=== PATIENT | female | born 1960 | race African-American/Black ===

== ENCOUNTER 2016-11-03 17:44 | Inpatient (IN) ==
[2016-11-03] MEDS ORDERED: cefTRIAXone 1,000 MG in SODIUM CHLORIDE 0.9% 100 ML IV STA (18:25)
--- NOTE | 2016-11-03 18:30 | Emergency Department Note ---
Arrival - Arrival Chief Complaint: Extremity Problem Stated Complaint: Referral from Dr.Jason Foley ED Nursing Triage Note: pt had fuild drawn off lt knee yesterday by Dr flori Alicia. pt was called today and told that fuild had high wbcs. pt was told to come here for iv antibiotics Mode of Arrival: Ambulatory Limitations: No Limitations Source: Patient Time Seen by Provider: 11/03/16 18:09 - History of Present Illness HPI Narrative: The patient had a button maker appointment yesterday with Dr. Alicia in [place]. She had been referred to him sometime back for multiple joint complaints, however, she had begun having left knee pain, swelling and warmth about 3 days previously. When he saw her he aspirated her left knee. She was called today and told that the joint fluid contained a lot of white blood cells and told that her blood sample also showed a high white blood cell count. She was told to come to the hospital for IV antibiotics. The patient states that Dr. Alicia did draw a culture on the joint fluid. She says she is sure about this, that they told her they would have culture results back in 2 days. She states the swelling is better since the fluid was removed. She continues to have pain but overall it feels better. She denies any fever but says the joint feels warm. The patient is a renal transplant patient. Allergies/Adverse Reactions: Allergies Allergy/AdvReac Type Severity Reaction Status Date / Time Penicillins Allergy RASH Verified 01/01/15 15:28 Home Medications: Home Medications Medication Instructions Recorded Confirmed Type Ondansetron Odt Tab [Zofran Odt] 4 mg PO Q6H PRN #12 tablet 01/01/15 Rx HYDROcodone/ACETAMIN 5-325 [[place] 1 tablet PO Q6H #10 tablet 11/16/15 Rx 5-325] Review of System - Review of System 12 point system: reviewed and no additional remarkable complaints except as stated - Review of System Constitutional: Absent: fever Musculoskeletal: Present: leg pain Medical,Surgical,& Family Hx - Medical History Cardio: History of: Hypertension Endocrine: History of: Diabetes Mellitus (NIDDM) Renal: History of: Renal Failure (polycystic kidney disease), Renal Problems ( kidney transplant in 2006) Gastrointestinal: History of: GERD No history of: Gastrointestinal Bleed, Liver Problems - Surgical History Thoracic Surgeries: Surgical HX of;: Organ Transplant Abdominal Surgeries: Surgical HX of: Abdominal Surgery (renal transplant 2007), Cholecystectomy - Family History Family History: noncontributory - Social History Smoking Status: Never smoker Frequency of Alcohol Use: None Type of Drug Use: None Exam Physical Examination: GENERAL: Alert. No acute distress. HEENT: Normocephalic and atraumatic. There is no nasal drainage. No pharyngeal erythema or exudate. NECK: Normal inspection. Supple. No lymphadenopathy or meningismus. LUNGS: No respiratory distress. Clear to auscultation bilaterally, no wheezes, rales or rhonchi. HEART: Regular rate and rhythm. 2/6 systolic murmur. ABDOMEN: Soft, nontender and nondistended with normoactive bowel sounds. BACK: Normal inspection. SKIN: Color normal. Warm and dry. EXTREMITIES: There is diffuse tenderness and swelling of the left knee with joint effusion. Mild warmth. Mild erythema. NEUROLOGICAL/PSYCHIATRIC: Alert and oriented -3 with normal mood and affect. Cranial nerves normal. No motor or sensory deficit. Vital Signs: Vital Signs Temperature 98.3 F 11/03/16 18:11 Pulse Rate 70 11/03/16 19:45 Respiratory Rate 18 11/03/16 19:45 Blood Pressure 160/91 11/03/16 19:45 O2 Sat by Pulse Oximetry 97 11/03/16 17:51 Course - Reevaluation(s) Reevaluation #1: The patient did not want to have arthrocentesis done again. She assures me that Dr. Alicia has drawn cultures and she seems reliable. I think we can get those results from him tomorrow. Her white blood cell count is also elevated and I do think she probably has a septic joint. She will need admission, IV antibiotics, orthopedics consult and nephrology consult due to her renal transplant. I discussed the patient with Dr. Vazquez who will see her and admit. Time: 19:53 Results - Labs CBC & BMP: 11/03/16 18:23 11/03/16 18:23 Disposition Clinical Impression: Septic arthritis of knee, left Case discussed with: patient, patient's family Disposition: Still a Patient Condition: Stable Time of Disposition: 19:54
[2016-11-03] MEDS ORDERED: cefTRIAXone 1,000 MG VIAL ONE (18:33)
[2016-11-03 18:57] LABS: Basophils % 0.1 % (0.0-0.8); Hematocrit 38.2 VOL% (35.7-47.0); Hemoglobin 12.4 GM/DL (12.0-16.0); Immature Granulocytes Absolute 0.25 #; Lymphocytes # 1.8 10*3/uL (1.4-4.0); Lymphocytes % 7.5 % (21.3-54.2); Mean Corpuscular HGB Conc 32.5 GM/DL (32-36); Mean Corpuscular Hemoglobin 29 PG (27-34); Mean Corpuscular Volume 89.7 FL (87-102); Mean Platelet Volume 12.7 FL (9.6-12.0); Monocytes # 0.9 10*3/uL (0.11-0.8); Monocytes % 3.7 % (1.7-12.7); Neutrophils # 21.2 10*3/uL (1.4-7.4); Neutrophils % 87.7 % (38.7-73.9); Platelet Count 228 T/CUMM (130-400); Red Blood Count 4.26 MC/CUMM (3.8-5.5); Red Cell Distribution Width 13.4 % (9.3-17.3); White Blood Count 24.2 T/CUMM (4-12)
[2016-11-03 19:13] LABS: Calcium 10.1 MG/DL (8.5-10.1); Osmolality,Calculated 288.2 MOS/KG (273-304); Potassium 4.4 MMOL/L (3.5-5.1)
[2016-11-03 19:47] LABS: Lymphocytes 7 % (20-55); Platelet Estimate Normal; Segmented Neutrophils 90 % (50-85); Total Cells Counted 100
[2016-11-03] MEDS ORDERED: MORPHINE 2 MG/1 ML SYRINGE IV PRN (20:13)
[2016-11-03] MEDS ORDERED: GLUCAGON 1 MG VIAL IM PRN (20:13)
[2016-11-03] MEDS ORDERED: ONDANSETRON 4 MG/2 ML VIAL IV PRN (20:13)
[2016-11-03] MEDS ORDERED: DEXTROSE 50% 25 GM/50 ML VIAL IV PRN (20:13)
[2016-11-03] MEDS ORDERED: ACETAMINOPHEN 325 MG TABLET PO PRN (20:13)
--- NOTE | 2016-11-03 20:19 | Hospitalist History & Physical ---
Assessment and Plan - Time spent with patient Time spent with patient: Greater than 30 minutes (1) Septic arthritis of knee, left Status: Acute Assessment and plan: She has been cultured and empiric IV antibiotics have been initiated. We will need to consult orthopedics for their opinion. We will also request results of aspirin along with Gram stain and cultures from her oil well service unit operator, Dr. Ortega Alicia. Current Visit: Yes (2) Hypertension Status: Chronic Assessment and plan: Blood pressures well controlled at this time. We will continue her current medical regimen. Current Visit: Yes (3) Status post kidney transplant Status: Chronic Assessment and plan: We will consult nephrology to assist. Will continue her current medical regimen. Current Visit: Yes (4) Diabetes mellitus Status: Chronic Assessment and plan: We will continue her routine home oral agent along with Accu-Cheks and sliding scale insulin. Current Visit: Yes Qualifiers: Diabetes mellitus type: type 2 History of Present Illness Chief complaint: Left knee pain and swelling History of present illness: Ms. Duque is a 56 year old -[place] female who has a history of hypertension, status post renal transplant who has noted several year history of multiple joint pain primarily involving her toes and fingers and elbows, however these have been increasing in intensity over the past several months. Last Wednesday she began having significant pain and swelling in her left knee which progressed throughout the week to the point that on Wednesday she was unable to work and had to ambulate with the use of assistance. She had an appointment see a oil well service unit operator, Dr. Ortega Alicia, in [place] on Wednesday for initial evaluation. She saw him Wednesday and reportedly had aspiration of the joint and was called today by his office stating that she needed to go to the hospital for admission and IV antibiotics because of elevated white blood cells and her joint aspirate as well as in her blood. She presented to the emergency room and referred to the hospitalist service for admission. She sees Dr. Jay Osullivan for her renal needs locally. Home Medications Medication Instructions Recorded Confirmed Type Aspirin [Ecotrin] 81 mg PO DAILY 11/03/16 11/03/16 History Carvedilol [Coreg] 25 mg PO BID 11/03/16 11/03/16 History Furosemide Tab [Lasix Tab] 20 mg PO BID 11/03/16 11/03/16 History Isosorbide Mononitrate [Imdur] 60 mg PO DAILY 11/03/16 11/03/16 History Lisinopril 20 mg PO BID 11/03/16 11/03/16 History Losartan Potassium 100 mg PO DAILY 11/03/16 11/03/16 History Mycophenolate Mofetil Cap 750 mg PO BID 11/03/16 11/03/16 History [Cellcept] NIFEdipine [Nifedipine ER] 30 mg PO BID 11/03/16 11/03/16 History Simvastatin [Zocor] 20 mg PO MOWEFR 11/03/16 11/03/16 History Sodium Bicarb Tab 1,300 mg PO BID 11/03/16 11/03/16 History Spironolactone 25 mg PO DAILY 11/03/16 11/03/16 History Sulfamethoxazole/Trimethoprim 1 each PO MOWEFR 11/03/16 11/03/16 History [Sulfamethoxazole/Tmp Ss 400-80 Tablet] Tacrolimus [Tacrolimus Cap] 0.5 mg PO QAM 11/03/16 11/03/16 History Tacrolimus [Tacrolimus Cap] 1 mg PO BEDTIME 11/03/16 11/03/16 History Valacyclovir HCl [Valacyclovir] 0.5 mg PO ONCE 11/03/16 11/03/16 History cloNIDine TAB [Catapres Tab] 0.3 mg PO BEDTIME 11/03/16 11/03/16 History diphenhydrAMINE HCl 25 mg PO BEDTIME 11/03/16 11/03/16 History [diphenhydrAMINE Cap] glipiZIDE [Glipizide ER] 2.5 mg PO DAILY 11/03/16 11/03/16 History predniSONE TAB [PredniSONE] 5 mg PO DIRECTED 11/03/16 11/03/16 History Allergies Allergy/AdvReac Type Severity Reaction Status Date / Time Penicillins Allergy RASH Verified 01/01/15 15:28 Medical,Surgical,& Family Hx - Medical History Cardio: History of: Hypertension Endocrine: History of: Diabetes Mellitus (NIDDM) Renal: History of: Renal Failure (polycystic kidney disease), Renal Problems ( kidney transplant in 2006) Gastrointestinal: History of: GERD No history of: Gastrointestinal Bleed, Liver Problems - Surgical History Thoracic Surgeries: Surgical HX of;: Organ Transplant Abdominal Surgeries: Surgical HX of: Abdominal Surgery (renal transplant 2006), Cholecystectomy - Family History Family History: Reports;: Family Heart Disease - Social History Smoking Status: Never smoker Frequency of Alcohol Use: None Type of Drug Use: None 12 point system: reviewed and no additional remarkable complaints except as stated Exam - Constitutional Vitals: Period Temp Pulse Resp BP Sys/Lin Pulse Ox Last 24 Hr 98.3 F-98.3 F 70-72 18-18 160-202/91-95 97 General appearance: no acute distress - Head Head exam: Present: normocephalic, atraumatic - Eye Eye exam: Present: EOMI. Absent: scleral icterus Pupils: Present: SURENDRA - ENT ENT exam: Present: normal exam - Neck Neck exam: Absent: lymphadenopathy, meningismus, tenderness, thyromegaly - Respiratory Respiratory exam: Present: clear to auscultation bilaterally. Absent: rales, rhonchi, wheezes - Cardiovascular Cardiovascular exam: Present: regular rate and rhythm, systolic murmur (2/6 systolic murmur left upper sternal border) - GI/Abdominal GI/Abdominal exam: Present: normal bowel sounds, soft. Absent: distended, mass , tenderness, rebound - Extremities Exam Extremities exam: Present: other (Left knee minimal tenderness and warmth with positive effusion, full range of motion) - Back Exam Back exam: Present: normal inspection - Neurological Exam Neurological exam: Present: alert, oriented X3, CN II-XII intact. Absent: motor sensory deficit - Psychiatric Psychiatric exam: Present: normal affect, normal mood. Absent: agitated, anxious - Skin Skin exam: Present: warm, dry. Absent: erythema, rash Results - Labs CBC & BMP: 11/03/16 18:23 11/03/16 18:23 Lab Results: I have reviewed the past 24 hour labs Quality Measures - VTE Deep Vein Thrombosis/Pulmonary Embolism Present on Admission: No
[2016-11-03] MEDS ORDERED: ENOXAPARIN 40 MG/0.4 ML SYRINGE SUBCUT SCH (21:00)
[2016-11-03] MEDS: VANCOMYCIN INJ 1,250 MG in SODIUM CHLORIDE 0.9% 250 ML IV SCH (22:13)
[2016-11-03] MEDS: INSULIN LISPRO 100 UNIT/ML SUBCUT SCH (22:14)
[2016-11-03] MEDS: MYCOPHENOLATE MOFETIL 250 MG CAPSULE PO SCH (22:15)
[2016-11-03] MEDS: FUROSEMIDE 20 MG TABLET PO SCH (22:15)
[2016-11-03] MEDS: diphenhydrAMINE CAP 25 MG CAPSULE PO SCH (22:16)
[2016-11-03] MEDS: LISINOPRIL 20 MG TABLET PO SCH (22:16)
[2016-11-03] MEDS: CARVEDILOL 25 MG TABLET PO SCH (22:17)
[2016-11-03] MEDS: SODIUM BICARBONATE 650 MG TABLET PO SCH (22:17)
[2016-11-03] MEDS: TACROLIMUS 0.5 MG CAPSULE PO SCH (22:30)
[2016-11-04 04:17] LABS: Basophils % 0.1 % (0.0-0.8); Hematocrit 34.4 VOL% (35.7-47.0); Immature Granulocytes % 0.7 %; Immature Granulocytes Absolute 0.12 #; Lymphocytes # 1.7 10*3/uL (1.4-4.0); Lymphocytes % 9.1 % (21.3-54.2); Mean Corpuscular Hemoglobin 29 PG (27-34); Mean Corpuscular Volume 89.8 FL (87-102); Mean Platelet Volume 12.9 FL (9.6-12.0); Monocytes % 5.4 % (1.7-12.7); Neutrophils # 15.6 10*3/uL (1.4-7.4); Neutrophils % 84.7 % (38.7-73.9); Platelet Count 192 T/CUMM (130-400); Red Blood Count 3.83 MC/CUMM (3.8-5.5); Red Cell Distribution Width 13.4 % (9.3-17.3); White Blood Count 18.4 T/CUMM (4-12)
[2016-11-04 04:35] LABS: Calcium 9.1 MG/DL (8.5-10.1); Osmolality,Calculated 294.7 MOS/KG (273-304); Potassium 4.4 MMOL/L (3.5-5.1)
--- NOTE | 2016-11-04 07:13 | Physician Query Form ---
CLICK EDIT DOCUMENT TO SELECT QUERY ANSWER --> OK --> SIGN Little Harden RN, CCDS Certified Clinical Finance Broker W) [phone] (f) [phone] [email or web address] PROVIDERS: Make your selection(s) from the choices in EACH section by typing an "x" and enter comments in the comment section. Please use your independent medical judgment in providing your response. This request does not imply that any particular answer is desired or expected. CLINICAL INDICATORS: (Providers should not edit this section) The medical record indicates that the patient was admitted with septic arthritis of knee, renal failure, renal transplant, polycystic kidney disease, creatinine 2.00 and GFR of 33. Clarify which of the following most accurately represents the patient's renal status: ( ) Acute kidney injury (non-traumatic) ( ) Acute renal failure ( x) Acute renal failure with underlying Chronic Kidney Disease (CKD) - please provide stage below ( ) Acute renal failure with pathological renal lesion ( ) Acute renal failure with necrosis ( ) tubular ( ) medullary ( ) cortical ( ) CKD - please provide stage below ( ) End Stage Renal Disease ( ) Acute interstitial nephritis ( ) Hepatorenal syndrome ( ) Other, please specify: ( ) Clinically unable to determine Chronic Kidney Disease Stages Source: National Kidney Disease Foundation ( ) Stage I (eGFR > or = 90) ( ) Stage II (eGFR 60 - 89) ( x) Stage III (eGFR 30 - 59) ( ) Stage IV (eGFR 15 - 29) ( ) Stage V (eGFR < 15 or dialysis) COMMENTS: Use of terms such as suspected, likely, or probable (associated with a specific diagnosis that is being evaluated, monitored, or treated as if it exists) are acceptable and can be restated in the discharge summary if not ruled out. MTDD
--- NOTE | 2016-11-04 08:23 | Orthopedic Consult Note ---
History of Present Illness Chief complaint: Left knee effusion History of present illness: Ms. Duque is a 56 year old female who presents for evaluation of a 8 day history of a right atraumatic knee effusion. The patient stated her symptoms started last Wednesday. She has a history of gout and recurrent attacks. She sees Dr. Ortega Alicia in rheumatology for management. She saw him on Wednesday where her knee was aspirated and lab work was obtained. She was placed on a 5 day course of prednisone. Ms. Duque also has a history of a kidney transplant for 10 years. She states that her knee has improved. She has had some warmth around the knee but has not had any fevers or chills. The patient was admitted and placed on ceftriaxone and vancomycin. Exam bilateral lower extremities shows that she has a moderate left knee effusion which is only mildly tender. The knee is mildly warm. Range of motion actively is from 0-90 without much pain. Her knee is stable and her extensor mechanism is intact. Laboratory values from her knee aspiration and blood work from Dr. Alicia's office was reviewed. It shows that she had a mild leukocytosis of 14,000, sedimentation rate of 78, and a mildly elevated C-reactive protein. Her uric acid was approximately 8.5. Her aspiration showed a white count of 38,000 with a left shift. No crystals were seen. Her white cell count at [facility] shows a leukocytosis of 24 and 18,000. Impression: Left knee effusion Plan: I discussed with the patient that at this point it is unclear whether this is a septic arthritis, an acute gouty arthritis or both. Certainly, she needs to be treated as a septic arthritis until her culture results are final. Her worsening leukocytosis is probably related to the initiation of prednisone. I am going to check x-rays and repeat her sedimentation rate, C-reactive protein and uric acid. I have held her Lovenox and made her n.p.o. past midnight in case her cultures come back positive for arthroscopic irrigation and debridement. Home Medications Medication Instructions Recorded Confirmed Type Aspirin [Ecotrin] 81 mg PO DAILY 11/03/16 11/03/16 History Carvedilol [Coreg] 25 mg PO BID 11/03/16 11/03/16 History Furosemide Tab [Lasix Tab] 20 mg PO BID 11/03/16 11/03/16 History Isosorbide Mononitrate [Imdur] 60 mg PO DAILY 11/03/16 11/03/16 History Lisinopril 20 mg PO BID 11/03/16 11/03/16 History Losartan Potassium 100 mg PO DAILY 11/03/16 11/03/16 History Mycophenolate Mofetil Cap 750 mg PO BID 11/03/16 11/03/16 History [Cellcept] NIFEdipine [Nifedipine ER] 30 mg PO BID 11/03/16 11/03/16 History Simvastatin [Zocor] 20 mg PO MOWEFR 11/03/16 11/03/16 History Sodium Bicarb Tab 1,300 mg PO BID 11/03/16 11/03/16 History Spironolactone 25 mg PO DAILY 11/03/16 11/03/16 History Sulfamethoxazole/Trimethoprim 1 each PO MOWEFR 11/03/16 11/03/16 History [Sulfamethoxazole/Tmp Ss 400-80 Tablet] Tacrolimus [Tacrolimus Cap] 0.5 mg PO QAM 11/03/16 11/03/16 History Tacrolimus [Tacrolimus Cap] 1 mg PO BEDTIME 11/03/16 11/03/16 History cloNIDine TAB [Catapres Tab] 0.3 mg PO BEDTIME 11/03/16 11/03/16 History diphenhydrAMINE HCl 25 mg PO BEDTIME 11/03/16 11/03/16 History [diphenhydrAMINE Cap] glipiZIDE [Glipizide ER] 2.5 mg PO DAILY 11/03/16 11/03/16 History predniSONE TAB [PredniSONE] 5 mg PO DIRECTED 11/03/16 11/03/16 History Allergies Allergy/AdvReac Type Severity Reaction Status Date / Time Penicillins Allergy RASH Verified 01/01/15 15:28 12 point system: reviewed and no additional remarkable complaints except as stated Medical,Surgical,& Family Hx - Medical History Cardio: History of: Hypertension, Cardiovascular Problems (heart murmur) HEENT: History of: Eye Problem (wear glasses) Endocrine: History of: Diabetes Mellitus (NIDDM) Renal: History of: Renal Failure (polycystic kidney disease), Renal Problems ( kidney transplant in 2006) Gastrointestinal: History of: GERD No history of: Gastrointestinal Bleed, Liver Problems Musculoskeletal: History of: Musculoskeletal Problems (joint problems) - Surgical History Thoracic Surgeries: Surgical HX of;: Organ Transplant Abdominal Surgeries: Surgical HX of: Abdominal Surgery (renal transplant 2006), Cholecystectomy - Family History Family History: Reports;: Family Heart Disease - Social History Smoking Status: Never smoker Frequency of Alcohol Use: None Type of Drug Use: None Exam - Constitutional Vitals: Period Temp Pulse Resp BP Sys/Lin Pulse Ox Last 24 Hr 97.1 F-98.4 F 64-79 18-20 159-169/69-85 95-98 Results - Labs CBC & BMP: 11/04/16 03:59 11/04/16 03:59 Assessment and Plan (1) Knee effusion, left Status: Acute Current Visit: Yes (2) Gout attack Status: Acute Current Visit: Yes Qualifiers: Gout site: knee Laterality: left
[2016-11-04 08:29] LABS: Uric Acid 9.1 MG/DL (2.6-6.0)
--- NOTE | 2016-11-04 08:36 | XRay Report ---
XR knee 2V LT Indication: Knee effusion. Comparison: None. Technique: AP and lateral images of the left knee were submitted. Findings: [id number] suprapatellar bursa joint effusion is demonstrated. Enthesophyte is noted insertion of the quadriceps tendon. Diffuse intimal calcification superficial femoral artery, popliteal artery, and infrapopliteal arterial structures is present. No fractures are demonstrated. Joint spacing of the medial lateral joint compartments appears well preserved. Impression: 1. Findings compatible with given history. Other findings are present as detailed. 11/04/2016 8:32 AM PROCEDURE INTERPRETED AT [facility] DEPARTMENT OF RADIOLOGY Final Report Signed by: Dr. Baltazar Harden
--- NOTE | 2016-11-04 09:59 | Hospitalist Progress Note ---
Hospitalist: Subjective Interval history: C/O slight ache in left knee but swelling is better per pt. No fever. Tolerating oral intake well. +BM this am. No diarrhea, melena or BRBPR. Exam - Constitutional Vitals: Period Temp Pulse Resp BP Sys/Lin Pulse Ox Last 24 Hr 97.1 F-98.4 F 64-79 18-20 159-169/69-85 95-98 Exam: GEN: A and O x 3 CV: RRR no M LUNGS: CTAB nonlabored ABD: Soft, NT, ND, +BS EXT: Warm no c/c. Slight edema and increased warmth of left knee. mild TTP. No overlying erythema Neuro: nonfocal Results - Labs CBC & BMP: 11/04/16 03:59 11/04/16 03:59 - Impressions (1) Septic arthritis of knee, left Status: Acute Assessment and plan: Cont empiric IV antibiotics (Received IV Rocephin in ER...currently on IV Vanc) . PKS managing dose. Orthopedics has evaluated and awaiting outside records. F/U Dr. Ortega Alicia Rheumatology at discharge. Current Visit: Yes (2) Hypertension, essential Status: Chronic Assessment and plan: Blood pressures well controlled at this time. We will continue her current medical regimen. Current Visit: Yes (3) Status post kidney transplant/ CKD stage 3 Status: Chronic Assessment and plan: Nephrology consulted. creatinine at baseline per patient. Will continue her current medical regimen. Current Visit: Yes (4) Diabetes mellitus Status: Chronic Assessment and plan: Hold Glipizide per ADA guidelines. Cont Accu-Cheks and sliding scale insulin. Check HgbA1c. Current Visit: Yes Qualifiers: Diabetes mellitus type: type 2 Quality Measures - VTE Deep Vein Thrombosis/Pulmonary Embolism Present on Admission: No
[2016-11-04] MEDS: SPIRONOLACTONE 25 MG TABLET PO SCH (10:01)
[2016-11-04] MEDS: MYCOPHENOLATE MOFETIL 250 MG CAPSULE PO SCH ×2 (10:02→21:28)
[2016-11-04] MEDS: SULFAMETHOX/TRIMETHOPRIM 400-80 MG TABLET PO SCH (10:02)
[2016-11-04] MEDS: ASPIRIN EC 81 MG TABLET PO SCH (10:02)
[2016-11-04] MEDS: LOSARTAN 50 MG TABLET PO SCH (10:03)
[2016-11-04] MEDS: CARVEDILOL 25 MG TABLET PO SCH ×2 (10:03→21:28)
[2016-11-04] MEDS: ISOSORBIDE MONONITRATE 30 MG TABLET PO SCH (10:04)
[2016-11-04] MEDS: FUROSEMIDE 20 MG TABLET PO SCH ×2 (10:05→21:30)
[2016-11-04] MEDS: TACROLIMUS 0.5 MG CAPSULE PO SCH ×2 (10:06→21:29)
[2016-11-04] MEDS: SODIUM BICARBONATE 650 MG TABLET PO SCH ×2 (10:07→21:29)
[2016-11-04] MEDS: PANTOPRAZOLE 40 MG TABLET PO SCH (10:07)
[2016-11-04] MEDS: SIMVASTATIN 20 MG TABLET PO SCH (10:08)
[2016-11-04] MEDS: INSULIN LISPRO 100 UNIT/ML SUBCUT SCH ×4 (10:13→21:31)
[2016-11-04] MEDS: LISINOPRIL 20 MG TABLET PO SCH ×2 (10:44→21:28)
--- NOTE | 2016-11-04 14:07 | Nephrology Consult Note ---
History of Present Illness Chief complaint: Kidney transplant in a patient admitted with a septic knee joint History of present illness: Ms. Duque is a 56 year old female who was admitted yesterday for knee pain. The patient states she had been having some knee pain for about a month and this progressively worsened particularly in the past week or so. She saw a electrotype molder recently and was felt to have fluid in her knee and had an aspiration. Cultures of this fluid are pending presently. The patient is getting empiric treatment with Rocephin and vancomycin. The patient states she has been having some associated sweats at night and has had some increased warmth as well as swelling and redness about her left knee recently. We were asked to see the patient for kidney transplant. The patient's creatinine today was 1.9 mg/dL review of her lab from about a year ago shows that she had a creatinine of around 1.7 mg/dL at that time. The patient had a kidney transplant about 10 years ago, this was a cadaveric renal transplant done at [facility]. The patient has been on tacrolimus and mycophenolate mofetil for this, she does not routinely take prednisone for her kidney. ROS: Head -positive headache yesterday ENT - denies sore throat Lymphatics - denies lymphadenopathy Hematology - denies bleeding problems Heart -she has occasional chest pain when she takes prednisone Lungs - denies shortness of breath Abdomen - denies abdominal pain Musculoskeletal -see HPI Skin - denies rash Neurology - denies stroke General - denies fever PE: General: in no acute distress Eyes: Pupils are round and reactive, conjunctivae are clear ENT: Nose is clear, O/P is benign Neck: Supple, no thyromegaly Lymphatics: No cervical, supraclavicular or axillary adenopathy Heart: Regular rate and rhythm, no edema Lungs: Clear to auscultation anteriorly, chest expansion symmetric Abdomen: Soft, normoactive bowel sounds, no hepatomegaly Musculoskeletal: Patient's left knee joint is a little bit enlarged when compared to the right knee joint, she has no surrounding erythema at this time Skin: Normal turgor, normal hydration, no rash Neuro/Psych: Alert and cooperative with good insight Home Medications Medication Instructions Recorded Confirmed Type Aspirin [Ecotrin] 81 mg PO DAILY 11/03/16 11/03/16 History Carvedilol [Coreg] 25 mg PO BID 11/03/16 11/03/16 History Furosemide Tab [Lasix Tab] 20 mg PO BID 11/03/16 11/03/16 History Isosorbide Mononitrate [Imdur] 60 mg PO DAILY 11/03/16 11/03/16 History Lisinopril 20 mg PO BID 11/03/16 11/03/16 History Losartan Potassium 100 mg PO DAILY 11/03/16 11/03/16 History Mycophenolate Mofetil Cap 750 mg PO BID 11/03/16 11/03/16 History [Cellcept] NIFEdipine [Nifedipine ER] 30 mg PO BID 11/03/16 11/03/16 History Simvastatin [Zocor] 20 mg PO MOWEFR 11/03/16 11/03/16 History Sodium Bicarb Tab 1,300 mg PO BID 11/03/16 11/03/16 History Spironolactone 25 mg PO DAILY 11/03/16 11/03/16 History Sulfamethoxazole/Trimethoprim 1 each PO MOWEFR 11/03/16 11/03/16 History [Sulfamethoxazole/Tmp Ss 400-80 Tablet] Tacrolimus [Tacrolimus Cap] 0.5 mg PO QAM 11/03/16 11/03/16 History Tacrolimus [Tacrolimus Cap] 1 mg PO BEDTIME 11/03/16 11/03/16 History cloNIDine TAB [Catapres Tab] 0.3 mg PO BEDTIME 11/03/16 11/03/16 History diphenhydrAMINE HCl 25 mg PO BEDTIME 11/03/16 11/03/16 History [diphenhydrAMINE Cap] glipiZIDE [Glipizide ER] 2.5 mg PO DAILY 11/03/16 11/03/16 History predniSONE TAB [PredniSONE] 5 mg PO DIRECTED 11/03/16 11/03/16 History Allergies Allergy/AdvReac Type Severity Reaction Status Date / Time Penicillins Allergy RASH Verified 01/01/15 15:28 Medical,Surgical,& Family Hx - Medical History Cardio: History of: Hypertension, Cardiovascular Problems (heart murmur) HEENT: History of: Eye Problem (wear glasses) Endocrine: History of: Diabetes Mellitus (NIDDM) Renal: History of: Renal Failure (polycystic kidney disease), Renal Problems ( kidney transplant in 2006) Gastrointestinal: History of: GERD No history of: Gastrointestinal Bleed, Liver Problems Musculoskeletal: History of: Musculoskeletal Problems (joint problems) - Surgical History Thoracic Surgeries: Surgical HX of;: Organ Transplant Abdominal Surgeries: Surgical HX of: Abdominal Surgery (renal transplant 2006), Cholecystectomy - Family History Family History: Reports;: Family Heart Disease - Social History Smoking Status: Never smoker Frequency of Alcohol Use: None Type of Drug Use: None Exam - Vital Signs Vital signs: Period Temp Pulse Resp BP Sys/Lin Pulse Ox Last 24 Hr 97.1 F-98.4 F 58-79 16-20 159-169/69-90 93-98 Results - Labs CBC & BMP: 11/04/16 03:59 11/04/16 03:59 Assessment and Plan (1) Status post kidney transplant Status: Chronic Assessment and plan: We will continue her present antirejection regimen Current Visit: Yes (2) Knee effusion, left Status: Acute Assessment and plan: Management per orthopedics, cultures on the joint fluid are pending Current Visit: Yes (3) Diabetes mellitus Status: Chronic Current Visit: Yes Qualifiers: Diabetes mellitus type: type 2 (4) Hypertension Status: Chronic Assessment and plan: Continue her present antihypertensives Current Visit: Yes (5) Anemia Status: Acute Assessment and plan: This is mild her hematocrit was around 34% today Current Visit: Yes (6) Hyperuricemia Status: Acute Assessment and plan: Patient CARE gas and level was 9.1 Current Visit: Yes
[2016-11-04] MEDS: predniSONE 20 MG TABLET PO SCH (15:34)
[2016-11-04] MEDS: cefTRIAXone 2,000 MG in SODIUM CHLORIDE 0.9% 100 ML IV SCH (17:50)
[2016-11-04] MEDS: diphenhydrAMINE CAP 25 MG CAPSULE PO SCH (21:28)
[2016-11-04] MEDS: VANCOMYCIN INJ 1,250 MG in SODIUM CHLORIDE 0.9% 250 ML IV SCH (21:32)
[2016-11-05 04:39] LABS: Basophils % 0.1 % (0.0-0.8); Hematocrit 35.5 VOL% (35.7-47.0); Hemoglobin 11.5 GM/DL (12.0-16.0); Immature Granulocytes % 1.1 %; Immature Granulocytes Absolute 0.14 #; Lymphocytes # 1.1 10*3/uL (1.4-4.0); Lymphocytes % 8.5 % (21.3-54.2); Mean Corpuscular HGB Conc 32.4 GM/DL (32-36); Mean Corpuscular Hemoglobin 29 PG (27-34); Mean Corpuscular Volume 88.5 FL (87-102); Mean Platelet Volume 13.8 FL (9.6-12.0); Monocytes # 0.5 10*3/uL (0.11-0.8); Monocytes % 4.1 % (1.7-12.7); Neutrophils # 10.7 10*3/uL (1.4-7.4); Neutrophils % 86.2 % (38.7-73.9); Platelet Count 133 T/CUMM (130-400); Red Blood Count 4.01 MC/CUMM (3.8-5.5); Red Cell Distribution Width 13.2 % (9.3-17.3); White Blood Count 12.5 T/CUMM (4-12)
[2016-11-05 05:26] LABS: Albumin 2.8 G/DL (3.4-5.0); Osmolality,Calculated 294.8 MOS/KG (273-304); Phosphorous 3.3 MG/DL (2.5-4.9); Potassium 5.2 MMOL/L (3.5-5.1)
--- NOTE | 2016-11-05 07:28 | Orthopedic Progress Note ---
Assessment and Plan (1) Knee effusion, left Status: Acute Current Visit: Yes (2) Gout attack Status: Acute Current Visit: Yes Qualifiers: Gout site: knee Laterality: left Orthopedics - Subjective Interval history: Mrs. Duque is feeling much better today. Exam shows full range of motion of her knee. She has a mild effusion with mild warmth. Radiographs knee were reviewed which show a knee effusion. Her preliminary culture result at 48 hours show no growth to date. Her uric acid level yesterday is also elevated to 9.1. Impression: Left knee effusion. Plan: Wait for final culture result. If the cultures are negative, I will assume that the knee effusion is secondary to an acute gout attack. Her antibiotics can be stopped, and she can then be discharged home finishing her course of prednisone. If the cultures are positive, I will recommend a knee arthroscopy for irrigation and debridement. Exam - Constitutional Vitals: Period Temp Pulse Resp BP Sys/Lin Pulse Ox Last 24 Hr 97.2 F-97.6 F 58-69 16-20 150-190/69-90 93-96 Results - Labs CBC & BMP: 11/05/16 03:49 11/05/16 03:49 Quality Measures - VTE Deep Vein Thrombosis/Pulmonary Embolism Present on Admission: No
[2016-11-05 08:07] LABS: Sedimentation Rate-Westergren 50 MM/HR (0-30)
[2016-11-05] MEDS: INSULIN LISPRO 100 UNIT/ML SUBCUT SCH ×4 (08:58→21:17)
[2016-11-05] MEDS: FUROSEMIDE 20 MG TABLET PO SCH ×2 (09:00→21:17)
[2016-11-05] MEDS: LOSARTAN 50 MG TABLET PO SCH (09:01)
[2016-11-05] MEDS: CARVEDILOL 25 MG TABLET PO SCH ×2 (09:01→21:15)
[2016-11-05] MEDS: ISOSORBIDE MONONITRATE 30 MG TABLET PO SCH (09:02)
[2016-11-05] MEDS: LISINOPRIL 20 MG TABLET PO SCH ×2 (09:10→21:16)
[2016-11-05] MEDS: MYCOPHENOLATE MOFETIL 250 MG CAPSULE PO SCH ×2 (12:05→21:15)
[2016-11-05] MEDS: TACROLIMUS 0.5 MG CAPSULE PO SCH ×2 (12:05→21:16)
[2016-11-05] MEDS ORDERED: SODIUM POLYSTYRENE SULFATE 15 GM/60 ML BOTTLE PO STA (12:43)
--- NOTE | 2016-11-05 12:45 | Hospitalist Progress Note ---
Hospitalist: Subjective Interval history: No fever. Pain in the left knee is much improved as well as swelling is decreased. No chest pain or shortness of breath. No bowel movement yet. No abdominal pain. Exam - Constitutional Vitals: Period Temp Pulse Resp BP Sys/Lin Pulse Ox Last 24 Hr 97.2 F-98.2 F 52-69 16-20 150-190/69-90 95-99 Exam: GEN: A and O x 3 CV: RRR no M LUNGS: CTAB nonlabored ABD: Soft, NT, ND, +BS EXT: Warm no c/c. Slight edema laterally and slight increased warmth of left knee. mild TTP. ROM better today. No overlying erythema Neuro: nonfocal Results - Labs CBC & BMP: 11/05/16 03:49 11/05/16 03:49 - Impressions (1) Suspected septic arthritis of knee, left in an immunocompromised patient due to kidney transplant Status: Acute Assessment and plan: Cont empiric IV antibiotics (Received IV Rocephin in ER...currently on IV Vanc) . PKS managing dose. Orthopedics input appreciated and is following. NPO for potential going to OR. Awaiting outside culture records. F/U Dr. Ortega Alicia Rheumatology at discharge. Current Visit: Yes (2) Hypertension, essential Status: Chronic Assessment and plan: We will continue her current medical regimen. Pain control. Current Visit: Yes (3) Status post kidney transplant/ CKD stage 3 Status: Chronic Assessment and plan: Nephrology consulted. creatinine at baseline per patient. Will continue her current medical regimen. Current Visit: Yes (4) hyperkalemia (acute) -Kayexalate x 1. Follow-up lab (5) diabetes mellitus fairly well controlled with a hemoglobin A1c of 7.3 Status: Chronic Assessment and plan: Hold Glipizide per ADA guidelines. Cont Accu-Cheks and sliding scale insulin. Current Visit: Yes Qualifiers: Diabetes mellitus type: type 2 DVT prophylaxis-on Lovenox but will need to change to renal dosing. Quality Measures - VTE Deep Vein Thrombosis/Pulmonary Embolism Present on Admission: No
[2016-11-05] MEDS ORDERED: ENOXAPARIN 40 MG/0.4 ML SYRINGE SUBCUT SCH (13:24)
--- NOTE | 2016-11-05 14:11 | Event Note ---
The final culture results are not back yet. I have discussed with Ms. Duque that we will go ahead and start a diet. If her cultures are negative, she can be discharged home with follow-up with Dr. Alicia and her antibiotics can be stopped. If positive, she will be placed on the schedule tomorrow for arthroscopic irrigation and debridement of her left knee.
[2016-11-05] MEDS: ASPIRIN EC 81 MG TABLET PO SCH (14:47)
[2016-11-05] MEDS: SPIRONOLACTONE 25 MG TABLET PO SCH (14:47)
[2016-11-05] MEDS: SODIUM BICARBONATE 650 MG TABLET PO SCH ×2 (14:48→21:16)
[2016-11-05] MEDS: predniSONE 20 MG TABLET PO SCH (14:49)
[2016-11-05] MEDS: PANTOPRAZOLE 40 MG TABLET PO SCH (14:49)
--- NOTE | 2016-11-05 16:16 | Nephrology Progress Note ---
Nephrology - PN: Subj Interval history: Patient complains of some continued knee pain but it is much improved. Review of systems pulmonary she denies shortness of breath Physical exam general the patient no acute distress Assessment/plan 1. Kidney transplant-patient's creatinine is 1.7 mg/dL this is improved from 1.9 2. Septic knee joint-we will continue antibiotics 3. Hypertension we will continue her present antihypertensives 4. Anemia 5. Hypokalemia-patient's potassium is 5.2 up from 4.4 she is on multiple medications which would make her hold onto potassium as well as her kidney failure we will continue to monitor this. I am going to put her on a low potassium diet. Exam (PN)-Nephrology - Vital Signs Vital signs: Period Temp Pulse Resp BP Sys/Lin Pulse Ox Last 24 Hr 97.2 F-98.2 F 52-69 16-20 150-190/69-90 95-99 - Lab 11/05/16 03:49 11/05/16 03:49 Most recent lab results Calcium 9.0 MG/DL (8.5-10.1) 11/05/16 03:49 Phosphorus 3.3 MG/DL (2.5-4.9) 11/05/16 03:49 Assessment and Plan (1) Status post kidney transplant Status: Chronic Assessment and plan: We will continue her present antirejection regimen Current Visit: Yes (2) Knee effusion, left Status: Acute Assessment and plan: Management per orthopedics, cultures on the joint fluid are pending Current Visit: Yes (3) Diabetes mellitus Status: Chronic Current Visit: Yes Qualifiers: Diabetes mellitus type: type 2 (4) Hypertension Status: Chronic Assessment and plan: Continue her present antihypertensives Current Visit: Yes (5) Anemia Status: Acute Assessment and plan: This is mild her hematocrit was around 34% today Current Visit: Yes (6) Hyperuricemia Status: Acute Assessment and plan: Patient CARE gas and level was 9.1 Current Visit: Yes
[2016-11-05] MEDS: cefTRIAXone 2,000 MG in SODIUM CHLORIDE 0.9% 100 ML IV SCH (18:46)
[2016-11-05] MEDS: diphenhydrAMINE CAP 25 MG CAPSULE PO SCH (21:15)
[2016-11-05] MEDS: VANCOMYCIN INJ 1,250 MG in SODIUM CHLORIDE 0.9% 250 ML IV SCH (22:32)
[2016-11-06 05:03] LABS: Calcium 8.9 MG/DL (8.5-10.1); Osmolality,Calculated 295.7 MOS/KG (273-304); Potassium 4.7 MMOL/L (3.5-5.1)
--- NOTE | 2016-11-06 07:40 | Orthopedic Progress Note ---
Assessment and Plan (1) Knee effusion, left Status: Acute Current Visit: Yes (2) Gout attack Status: Acute Current Visit: Yes Qualifiers: Gout site: knee Laterality: left Orthopedics - Subjective Interval history: Ms. Duque states that her knee is significantly better. Exam shows a very minimal knee effusion. She has full painless range of motion of her knee. She is just mildly tender. Culture results from [facility] show no growth at 72 hours. Impression: Left knee acute gout attack Plan: Antibiotics can be stopped. Ms. Duque can be discharged home with follow- up with Dr. Alicia for management of her gout. Exam - Constitutional Vitals: Period Temp Pulse Resp BP Sys/Lin Pulse Ox Last 24 Hr 96.9 F-98.2 F 52-68 16-20 156-191/72-90 93-99 Results - Labs CBC & BMP: 11/05/16 03:49 11/06/16 03:51 Quality Measures - VTE Deep Vein Thrombosis/Pulmonary Embolism Present on Admission: No
--- NOTE | 2016-11-06 09:26 | Nephrology Progress Note ---
Nephrology - PN: Subj Interval history: Patient complains of some continued mild knee pain but is much improved. Assessment/plan #1. Kidney transplant-patient's creatinine is 1.6 2. Hypertension is controlled 3. Left knee effusion-this patient's culture were negative from her left knee tap, it is felt that she had an acute gout attack involving her left knee Exam (PN)-Nephrology - Vital Signs Vital signs: Period Temp Pulse Resp BP Sys/Lin Pulse Ox Last 24 Hr 96.9 F-97.7 F 54-68 16-20 156-191/72-90 93-99 - Lab 11/05/16 03:49 11/06/16 03:51 Most recent lab results Calcium 8.9 MG/DL (8.5-10.1) 11/06/16 03:51 Phosphorus 3.3 MG/DL (2.5-4.9) 11/05/16 03:49 Assessment and Plan (1) Status post kidney transplant Status: Chronic Assessment and plan: We will continue her present antirejection regimen Current Visit: Yes (2) Knee effusion, left Status: Acute Assessment and plan: Management per orthopedics, cultures on the joint fluid are pending Current Visit: Yes (3) Diabetes mellitus Status: Chronic Current Visit: Yes Qualifiers: Diabetes mellitus type: type 2 (4) Hypertension Status: Chronic Assessment and plan: Continue her present antihypertensives Current Visit: Yes (5) Anemia Status: Acute Assessment and plan: This is mild her hematocrit was around 34% today Current Visit: Yes (6) Hyperuricemia Status: Acute Assessment and plan: Patient CARE gas and level was 9.1 Current Visit: Yes
[2016-11-06] MEDS: INSULIN LISPRO 100 UNIT/ML SUBCUT SCH (09:50)
[2016-11-06] MEDS: LOSARTAN 50 MG TABLET PO SCH (09:51)
[2016-11-06] MEDS: SULFAMETHOX/TRIMETHOPRIM 400-80 MG TABLET PO SCH (09:51)
[2016-11-06] MEDS: SODIUM BICARBONATE 650 MG TABLET PO SCH (09:52)
[2016-11-06] MEDS: SPIRONOLACTONE 25 MG TABLET PO SCH (09:52)
[2016-11-06] MEDS: predniSONE 20 MG TABLET PO SCH (09:52)
[2016-11-06] MEDS: MYCOPHENOLATE MOFETIL 250 MG CAPSULE PO SCH (09:52)
[2016-11-06] MEDS: ASPIRIN EC 81 MG TABLET PO SCH (09:52)
[2016-11-06] MEDS: ISOSORBIDE MONONITRATE 30 MG TABLET PO SCH (09:52)
[2016-11-06] MEDS: CARVEDILOL 25 MG TABLET PO SCH (09:53)
[2016-11-06] MEDS: TACROLIMUS 0.5 MG CAPSULE PO SCH (09:53)
[2016-11-06] MEDS: SIMVASTATIN 20 MG TABLET PO SCH (09:53)
[2016-11-06] MEDS: FUROSEMIDE 20 MG TABLET PO SCH (09:53)
[2016-11-06] MEDS: LISINOPRIL 20 MG TABLET PO SCH (09:53)
[2016-11-06] MEDS: PANTOPRAZOLE 40 MG TABLET PO SCH (09:53)
--- NOTE | 2016-11-06 12:17 | Discharge Summary ---
Hospital Course - Hospital Course Hospital Course: Patient is a 56-year-old -[place] female with a history of chronic kidney disease stage III status post a kidney transplant, on immunosuppressants and diabetes mellitus type 2 who presented to the hospital with a chief complaint of left knee pain. 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 Orthopedics and nephrology were consulted to assist with her management. She was started on IV vancomycin after receiving a dose of Rocephin in the emergency room. Serial labs showed significant improvement. She was continued on prednisone for possible gouty arthritis. With treatment during hospitalization. Patient's symptoms significantly improved. According to the orthopedic surgeon, her studies reflected an acute gouty arthropathy attack and IV antibiotics were discontinued. She was encouraged to follow-up with Dr. Ortega Alicia with rheumatology for further management. For her diabetes, she was treated with an insulin sliding scale during hospitalization according to the ADA guidelines and glipizide was held. For hypertension she was continued on her home regimen with adequate control of her blood pressure. Her creatinine was 1.6 at the time of discharge (patient reports her creatinine is between 1.7 and 2 at baseline). When she was cleared by all consultants, patient was discharged to home for ongoing care. - Time spent with patient Time with patient DS: Greater than 30 minutes (35 minutes arranging this discharge) Diagnosis - Discharge Diagnosis (1) Diabetes mellitus Status: Chronic (2) Hypertension Status: Chronic (3) Status post kidney transplant Status: Chronic (4) Knee effusion, left Status: Acute (5) Gout attack Status: Acute (6) Anemia Status: Chronic Specialty Discharge - Follow Up or Referrals Follow up with: Ortega Alicia MD [Physician] - 2 Weeks Discharge Plan - Discharge Data Disposition: Disch To Home/Self Care Condition at Discharge: Stable Discharge Diet: other (Renal, 1800 ADA diet) Activity: increase activity as tolerated Contact your physician if you experience:: fever over 101, Difficulty voiding, Redness or swelling, Nausea/Vomiting, Shortness of breath, Bleeding, pain uncontrolled by pain medications - Discharge Medications New Pantoprazole Tab [Protonix Tab] 40 mg PO DAILY #30 tablet predniSONE TAB [PredniSONE] 5 mg PO DAILY tablet HYDROcodone/ACETAMIN 7.5-325 [[place] 7.5-325] 1 tablet PO Q4H PRN #20 tablet PRN Reason: Pain Moderate (4-7) predniSONE TAB [PredniSONE] 10 mg PO DAILY #5 tablet Continue predniSONE TAB [PredniSONE] 5 mg PO DIRECTED Tacrolimus [Tacrolimus Cap] 0.5 mg PO QAM Sulfamethoxazole/Trimethoprim [Sulfamethoxazole/Tmp Ss 400-80 Tablet] 1 each PO MOWEFR Spironolactone 25 mg PO DAILY Simvastatin [Zocor] 20 mg PO MOWEFR NIFEdipine [Nifedipine ER] 30 mg PO BID Mycophenolate Mofetil Cap [Cellcept] 750 mg PO BID Losartan Potassium 100 mg PO DAILY glipiZIDE [Glipizide ER] 2.5 mg PO DAILY Isosorbide Mononitrate [Imdur] 60 mg PO DAILY diphenhydrAMINE HCl [diphenhydrAMINE Cap] 25 mg PO BEDTIME cloNIDine TAB [Catapres Tab] 0.3 mg PO BEDTIME Carvedilol [Coreg] 25 mg PO BID Aspirin [Ecotrin] 81 mg PO DAILY Tacrolimus [Tacrolimus Cap] 1 mg PO BEDTIME Sodium Bicarb Tab 1,300 mg PO BID Lisinopril 20 mg PO BID Furosemide Tab [Lasix Tab] 20 mg PO BID - Follow Up or Referral Follow Up: Ortega Alicia MD [Physician] - 2 Weeks - Forms/Instructions Exam - Constitutional Vitals: Period Temp Pulse Resp BP Sys/Lni Pulse Ox Last 24 Hr 96.9 F-97.7 F 60-68 18-20 156-191/72-87 93-98 Exam: GEN: A and O x 3 CV: RRR no M LUNGS: CTAB nonlabored ABD: Soft, NT, ND, +BS EXT: Warm no c/c. Slight edema laterally and slight increased warmth of left knee. mild TTP. ROM better today. No overlying erythema Neuro: nonfocal Discharge Results Labs on day of discharge: Labs from last 24 hours 11/06/16 11/06/16 11/06/16 11:13 07:03 03:51 Sodium 138 Potassium 4.7 Chloride 103 Carbon Dioxide 26 Anion Gap 13.7 BUN 41 H Creatinine 1.60 H GFR Calculation 45 BUN/Creatinine Ratio 25.00 H Glucose 301 H POC Glucose 145 H 242 H Calculated Osmolality 295.7 Calcium 8.9 11/05/16 11/05/16 19:45 15:25 Sodium Potassium Chloride Carbon Dioxide Anion Gap BUN Creatinine GFR Calculation BUN/Creatinine Ratio Glucose POC Glucose 209 H 230 H Calculated Osmolality Calcium DS: Provider Date of admission: 11/03/16 20:12 Primary care physician: Fawad Guidry Jr., Attending physician on admission: Erendira Diaz MD Consults: 11/03/16 20:13 Consult to Physician [CONS] Routine Comment: Consulting Provider: Eric Urbina Consulting Provider Notified: Yes When should Consulting Provider be notified: Now Person Notified: sheron called Date Notified: 11/04/16 Time Notified: 07:27 Consult to Physician [CONS] Routine Comment: Consulting Provider: Fawad Guidry Jr. Consulting Provider Notified: Yes When should Consulting Provider be notified: Now Person Notified: timmy called Date Notified: 11/04/16 Time Notified: 08:07 11/03/16 20:23 Consult to Pharmacy [CONS] Routine Reason for Pharmacy Consult: Dose/Manage Vancomycin 11/05/16 16:16 Consult to Dietitian [CONS] Routine Reason for Dietitian: Diet Recommendations Consult Comment: Instruct in low potassium diet and give low K+ diet through hosp. kitchen Discharging clinician: Ernedira Diaz MD
[2016-11-06 14:43] VITALS: BP 162/82
[2016-11-07] MEDS ORDERED: predniSONE 10 MG TABLET PO SCH (09:00)
--- NOTE | 2016-11-10 07:45 | Physician Query Form ---
CLICK EDIT DOCUMENT TO SELECT QUERY ANSWER --> OK --> SIGN Little Harden RN, CCDS Certified Clinical Energy Specialist W) [phone] (f) [phone] [email or web address] PROVIDERS: Make your selection(s) from the choices in EACH section by typing an "x" and enter comments in the comment section. Please use your independent medical judgment in providing your response. This request does not imply that any particular answer is desired or expected. CLINICAL INDICATORS: (Providers should not edit this section) The medical record indicates that the patient was admitted with septic arthritis of knee, renal failure, renal transplant, polycystic kidney disease, and was later found to have Gout.---Patient is on Prednisone. Based on the above, could you clarify the appropriate diagnosis, if significant , that supports the above abnormalities and additional evaluation, monitoring, and/or treatment rendered: ( ) Gout due to Bursitis ( ) Gout due to Drug induced ( ) Gout due to Idiopathic ( x) Gout due to renal Impairment ( ) Gout Primary ( ) Gout Secondary Syphilitic ( ) Tophi ( ) ( ) Other, please specify: ( ) Clinically unable to determine COMMENTS: Use of terms such as suspected, likely, or probable (associated with a specific diagnosis that is being evaluated, monitored, or treated as if it exists) are acceptable and can be restated in the discharge summary if not ruled out. MTDD
[2016-11-12] MEDS ORDERED: predniSONE 5 MG TABLET PO SCH (09:00)
== END 2016-11-06 13:58 | disposition home or self-care (01) | DRG 699 ==
LOC: N.ED 17:44 → N.EDINP 20:12 → N.3E 20:50
PROVIDERS: ADMIT Pediatrics; ATTEND Pediatrics

== ENCOUNTER 2017-10-03 15:25 | Observation (INO) ==
[2017-10-03] MEDS ORDERED: PANTOPRAZOLE 40 MG VIAL IV STA (17:32)
[2017-10-03] MEDS ORDERED: ONDANSETRON 4 MG/2 ML VIAL IV STA (17:32)
[2017-10-03] MEDS ORDERED: PANTOPRAZOLE 40 MG VIAL IV ONE (18:47)
[2017-10-03] MEDS ORDERED: ONDANSETRON 4 MG/2 ML VIAL ONE (18:47)
[2017-10-03 18:50] LABS: Basophils % 0.5 % (0.0-0.8); Eosinophils # 0.2 10*3/uL (0.0-0.87); Eosinophils % 2.4 % (0.00-10.9); Hematocrit 35.2 VOL% (35.7-47.0); Hemoglobin 11.4 GM/DL (12.0-16.0); Immature Granulocytes % 0.3 %; Immature Granulocytes Absolute 0.03 #; Lymphocytes # 2.3 10*3/uL (1.4-4.0); Mean Corpuscular HGB Conc 32.4 GM/DL (32-36); Mean Corpuscular Hemoglobin 29 PG (27-34); Mean Corpuscular Volume 88.4 FL (87-102); Mean Platelet Volume 13.1 FL (9.6-12.0); Monocytes % 11.8 % (1.7-12.7); Platelet Count 206 T/CUMM (130-400); Red Blood Count 3.98 MC/CUMM (3.8-5.5); Red Cell Distribution Width 12.9 % (9.3-17.3); White Blood Count 8.7 T/CUMM (4-12)
[2017-10-03 18:58] LABS: PT Patient Result 10.6 SECS
[2017-10-03 19:08] LABS: Ammonia 34 UMOL/L (11-32)
[2017-10-03 19:10] LABS: Alanine Aminotransferase 17 U/L (13-56); Albumin 3.8 G/DL (3.4-5.0); Alkaline Phosphatase 75 U/L (45-117); Aspartate Amino Transferase 20 U/L (0-37); Bilirubin,Total < 0.39 MG/DL (0.2-1.0); Blood Urea Nitrogen 44 MG/DL (7-18); Calcium 9.7 MG/DL (8.5-10.1); Glucose 141 MG/DL (74-106); Osmolality,Calculated 291.4 MOS/KG (273-304); Potassium 4.3 MMOL/L (3.5-5.1); Sodium 140 MMOL/L (136-145); Total Protein 7.3 G/DL (6.4-8.3); Troponin I Only 0.015 NG/ML (0.00-0.045)
[2017-10-03] MEDS ORDERED: ONDANSETRON 4 MG/2 ML VIAL IV PRN (20:02)
[2017-10-03] MEDS ORDERED: BISACODYL 5 MG TABLET PO STA (20:20)
[2017-10-03] MEDS ORDERED: POLYETHYLENE GLYCOL POWDER 255 GM BOTTLE PO ONE (20:20)
[2017-10-03 23:06] LABS: Hematocrit 33.8 VOL% (35.7-47.0)
[2017-10-03] MEDS: MYCOPHENOLATE MOFETIL 250 MG CAPSULE PO SCH (23:21)
[2017-10-03] MEDS: TACROLIMUS 0.5 MG CAPSULE PO SCH (23:22)
[2017-10-03] MEDS: FUROSEMIDE 20 MG TABLET PO SCH (23:22)
[2017-10-03] MEDS: SODIUM BICARBONATE 650 MG TABLET PO SCH (23:23)
[2017-10-03] MEDS: CARVEDILOL 25 MG TABLET PO SCH (23:23)
[2017-10-03] MEDS: LISINOPRIL 20 MG TABLET PO SCH (23:23)
[2017-10-03] MEDS: SODIUM CHLORIDE 0.9% 1,000 ML IV SCH (23:27)
[2017-10-04 03:06] LABS: Hematocrit 32.6 VOL% (35.7-47.0); Hemoglobin 10.6 GM/DL (12.0-16.0)
[2017-10-04 08:13] LABS: Hematocrit 33.7 VOL% (35.7-47.0)
[2017-10-04] MEDS: FUROSEMIDE 20 MG TABLET PO SCH ×2 (08:21→19:38)
[2017-10-04] MEDS: ISOSORBIDE MONONITRATE 60 MG TABLET PO SCH (08:21)
[2017-10-04] MEDS: ASPIRIN EC 81 MG TABLET PO SCH (08:21)
[2017-10-04] MEDS: TACROLIMUS 0.5 MG CAPSULE PO SCH ×2 (08:21→20:35)
[2017-10-04] MEDS: CARVEDILOL 25 MG TABLET PO SCH ×2 (08:21→19:38)
[2017-10-04] MEDS: SPIRONOLACTONE 25 MG TABLET PO SCH (08:21)
[2017-10-04] MEDS: LISINOPRIL 20 MG TABLET PO SCH ×2 (08:21→19:38)
[2017-10-04] MEDS: predniSONE 5 MG TABLET PO SCH (08:21)
[2017-10-04] MEDS: MYCOPHENOLATE MOFETIL 250 MG CAPSULE PO SCH ×2 (08:21→20:35)
[2017-10-04] MEDS: LOSARTAN 50 MG TABLET PO SCH (08:21)
[2017-10-04] MEDS: SODIUM CHLORIDE 0.9% 1,000 ML IV SCH ×2 (08:21→20:46)
[2017-10-04] MEDS: SODIUM BICARBONATE 650 MG TABLET PO SCH ×2 (08:22→20:36)
[2017-10-04] MEDS: ALLOPURINOL 300 MG TABLET PO SCH (08:22)
[2017-10-04] MEDS: PANTOPRAZOLE 40 MG VIAL IV SCH (08:22)
[2017-10-04 14:24] LABS: Hematocrit 34.3 VOL% (35.7-47.0); Hemoglobin 11.2 GM/DL (12.0-16.0)
[2017-10-04] MEDS: BISACODYL 5 MG TABLET PO SCH ×2 (16:48→23:52)
[2017-10-04] MEDS ORDERED: POLYETHYLENE GLYCOL 3350/ELECTROLYTES 4,000 ML BOTTLE PO ONE (18:00)
[2017-10-04] MEDS ORDERED: SULFAMETHOX/TRIMETHOPRIM 400-80 MG TABLET PO SCH (20:41)
[2017-10-04] MEDS ORDERED: SIMVASTATIN 10 MG TABLET PO SCH (20:41)
[2017-10-04] MEDS ORDERED: MAGNESIUM CITRATE 300 ML BOTTLE PO ONE (21:00)
[2017-10-05] MEDS: CARVEDILOL 25 MG TABLET PO SCH ×2 (01:51→13:00)
[2017-10-05] MEDS: FUROSEMIDE 20 MG TABLET PO SCH ×2 (01:51→13:00)
[2017-10-05] MEDS: LISINOPRIL 20 MG TABLET PO SCH ×2 (01:52→13:00)
[2017-10-05 05:57] LABS: Basophils % 0.5 % (0.0-0.8); Eosinophils # 0.2 10*3/uL (0.0-0.87); Eosinophils % 2.4 % (0.00-10.9); Hematocrit 33.9 VOL% (35.7-47.0); Hemoglobin 10.8 GM/DL (12.0-16.0); Immature Granulocytes % 0.5 %; Immature Granulocytes Absolute 0.04 #; Lymphocytes # 2.4 10*3/uL (1.4-4.0); Lymphocytes % 26.6 % (21.3-54.2); Mean Corpuscular HGB Conc 31.9 GM/DL (32-36); Mean Corpuscular Hemoglobin 29 PG (27-34); Mean Corpuscular Volume 90.2 FL (87-102); Mean Platelet Volume 13.2 FL (9.6-12.0); Monocytes # 0.8 10*3/uL (0.11-0.8); Monocytes % 9.3 % (1.7-12.7); Neutrophils # 5.4 10*3/uL (1.4-7.4); Neutrophils % 60.7 % (38.7-73.9); Platelet Count 195 T/CUMM (130-400); Red Blood Count 3.76 MC/CUMM (3.8-5.5); Red Cell Distribution Width 12.9 % (9.3-17.3); White Blood Count 8.9 T/CUMM (4-12)
[2017-10-05 06:27] LABS: Calcium 9.2 MG/DL (8.5-10.1); Osmolality,Calculated 287.3 MOS/KG (273-304); Potassium 4.1 MMOL/L (3.5-5.1)
[2017-10-05] MEDS: BISACODYL 5 MG TABLET PO SCH (08:33)
[2017-10-05] MEDS: ASPIRIN EC 81 MG TABLET PO SCH ×2 (08:33→13:00)
[2017-10-05] MEDS: SPIRONOLACTONE 25 MG TABLET PO SCH ×2 (08:33→13:00)
[2017-10-05] MEDS: predniSONE 5 MG TABLET PO SCH ×2 (08:34→13:00)
[2017-10-05] MEDS: SODIUM BICARBONATE 650 MG TABLET PO SCH ×2 (08:34→13:00)
[2017-10-05] MEDS: ALLOPURINOL 300 MG TABLET PO SCH ×2 (08:34→12:59)
[2017-10-05 12:05] VITALS: BP 210/90
[2017-10-05] MEDS ORDERED: PROPOFOL 200 MG/20 ML VIAL IV ONE (12:35)
[2017-10-05] MEDS ORDERED: LIDOCAINE 2% 5 ML VIAL ONE (12:35)
[2017-10-05] MEDS: TACROLIMUS 0.5 MG CAPSULE PO SCH (12:59)
[2017-10-05] MEDS: LOSARTAN 50 MG TABLET PO SCH (13:00)
[2017-10-05] MEDS: MYCOPHENOLATE MOFETIL 250 MG CAPSULE PO SCH (13:00)
[2017-10-05] MEDS: ISOSORBIDE MONONITRATE 60 MG TABLET PO SCH (13:00)
[2017-10-05] MEDS: SODIUM CHLORIDE 0.9% 1,000 ML IV SCH (13:01)
[2017-10-05] MEDS: PANTOPRAZOLE 40 MG VIAL IV SCH (13:01)
== END 2017-10-05 15:05 | disposition home or self-care (01) ==
LOC: N.ED 15:25 → N.EDINP 15:25 → N.2E 20:40
PROVIDERS: ADMIT Internal Medicine; ATTEND Internal Medicine

== ENCOUNTER 2018-12-29 06:50 | Inpatient (IN) ==
[2018-12-29] MEDS ORDERED: ASPIRIN 325 MG TABLET PO STA (07:08)
[2018-12-29] MEDS ORDERED: ONDANSETRON 4 MG/2 ML VIAL IV PRN (07:08)
[2018-12-29] MEDS ORDERED: MORPHINE 4 MG/1 ML VIAL IV PRN (07:08)
[2018-12-29 07:56] LABS: Basophils % 0.2 % (0.0-0.8); Eosinophils # 0.1 10*3/uL (0.0-0.87); Eosinophils % 1.1 % (0.00-10.9); Hemoglobin 10.7 GM/DL (12.0-16.0); Immature Granulocytes % 0.4 %; Immature Granulocytes Absolute 0.05 #; Lymphocytes # 2.1 10*3/uL (1.4-4.0); Lymphocytes % 18.5 % (21.3-54.2); Mean Corpuscular HGB Conc 32.4 GM/DL (32-36); Mean Corpuscular Volume 87.8 FL (87-102); Monocytes % 8.3 % (1.7-12.7); Neutrophils % 71.5 % (38.7-73.9); Platelet Count 185 T/CUMM (130-400); Red Blood Count 3.76 MC/CUMM (3.8-5.5); White Blood Count 11.3 T/CUMM (4-12)
[2018-12-29 08:05] LABS: INR 0.9; Partial Thromboplastin Time 27.2 SECS (0-40)
[2018-12-29 08:17] LABS: Alanine Aminotransferase 15 U/L (13-56); Albumin 3.2 G/DL (3.4-5.0); Alkaline Phosphatase 76 U/L (45-117); Aspartate Amino Transferase 13 U/L (0-37); Bilirubin,Total < 0.39 MG/DL (0.2-1.0); Blood Urea Nitrogen 60 MG/DL (7-18); Calcium 9.9 MG/DL (8.5-10.1); Glucose 208 MG/DL (74-106); Osmolality,Calculated 299.5 MOS/KG (273-304); Total Protein 7.1 G/DL (6.4-8.3)
[2018-12-29 08:19] LABS: Apearance,Urine CLEAR (Clear); Bacteria,Urine Occasional /HPF (Few); Bilirubin,Urine Negative (Negative); Blood, Urine Negative (Negative); Glucose,Urine (UA) 50 mg/dL (Negative); Hyaline Casts,Urine 3 /LPF (0-3); Ketones,Urine Negative (Negative); Mucus,Urine Occasional /LPF (Occasional); Nitrite,Urine Negative (Negative); Protein,Urine >=500 MG/DL; RBC,Urine 1 /HPF (0-4); Squamous Epithelial Cell,Urine Occasional /HPF (0-10); Urine Color Straw (Yellow); Urine Specific Gravity 1.013 (1.001-1.035); Urine Urobilinogen < 2.0 EU/DL (0.2-1.0); WBC,Urine 2 /HPF (0-6)
[2018-12-29] MEDS ORDERED: ACETAMINOPHEN 325 MG TABLET PO PRN (10:16)
[2018-12-29] MEDS ORDERED: LACTULOSE 20 GM/30 ML UDCUP PO PRN (10:16)
[2018-12-29 10:49] LABS: Thyroid Stimulating Hormone 2.66 uIU/ml (0.358-3.74)
[2018-12-29] MEDS ORDERED: PANTOPRAZOLE 40 MG VIAL IV SCH (11:00)
[2018-12-29] MEDS ORDERED: FAMOTIDINE 20 MG/2 ML VIAL IV SCH ×2 (12:00→15:28)
[2018-12-29] MEDS: ASPIRIN EC 81 MG TABLET PO SCH (13:28)
[2018-12-29] MEDS: SPIRONOLACTONE 25 MG TABLET PO SCH (13:28)
[2018-12-29] MEDS: SODIUM BICARBONATE 650 MG TABLET PO SCH ×2 (13:28→21:22)
[2018-12-29] MEDS: FUROSEMIDE 20 MG TABLET PO SCH ×2 (13:28→21:23)
[2018-12-29] MEDS: LISINOPRIL 20 MG TABLET PO SCH ×2 (13:28→21:23)
[2018-12-29] MEDS: ISOSORBIDE MONONITRATE 30 MG TABLET PO SCH (13:28)
[2018-12-29] MEDS: CARVEDILOL 25 MG TABLET PO SCH ×2 (13:29→21:23)
[2018-12-29] MEDS: TACROLIMUS 0.5 MG CAPSULE PO SCH ×2 (13:29→21:23)
[2018-12-29] MEDS: LOSARTAN 50 MG TABLET PO SCH (13:29)
[2018-12-29] MEDS: HEPARIN 5,000 UNIT/1 ML VIAL SUBCUT SCH (13:30)
[2018-12-29] MEDS: MYCOPHENOLATE MOFETIL 250 MG CAPSULE PO SCH ×2 (13:30→21:23)
[2018-12-29] MEDS: hydrALAZINE 20 MG/1 ML VIAL IV PRN (15:01)
[2018-12-29] MEDS ORDERED: ALUM/MAG/SIMETH/LIDO VISC 1:1 30 ML BOTTLE PO ONE (15:29)
[2018-12-29] MEDS ORDERED: PANTOPRAZOLE 40 MG TABLET PO SCH (16:00)
[2018-12-30] MEDS: ONDANSETRON 4 MG/2 ML VIAL IV PRN (03:17)
[2018-12-30] MEDS ORDERED: PANTOPRAZOLE 40 MG VIAL IV ONE (03:52)
[2018-12-30 05:32] LABS: Basophils % 0.3 % (0.0-0.8); Eosinophils # 0.1 10*3/uL (0.0-0.87); Eosinophils % 1.3 % (0.00-10.9); Hematocrit 35.1 VOL% (35.7-47.0); Hemoglobin 10.9 GM/DL (12.0-16.0); Immature Granulocytes % 0.4 %; Immature Granulocytes Absolute 0.04 #; Lymphocytes # 1.7 10*3/uL (1.4-4.0); Lymphocytes % 16.1 % (21.3-54.2); Mean Corpuscular HGB Conc 31.1 GM/DL (32-36); Mean Platelet Volume 12.8 FL (9.6-12.0); Monocytes % 6.5 % (1.7-12.7); Neutrophils % 75.4 % (38.7-73.9); Platelet Count 150 T/CUMM (130-400); Red Cell Distribution Width 12.8 % (9.3-17.3); White Blood Count 10.3 T/CUMM (4-12)
[2018-12-30 05:55] LABS: Calcium 9.1 MG/DL (8.5-10.1); Osmolality,Calculated 299.4 MOS/KG (273-304); Risk Ratio 8.58; VLDL CHOLESTEROL 123.2 MG/DL
[2018-12-30] MEDS ORDERED: predniSONE 10 MG TABLET PO SCH (09:00)
[2018-12-30] MEDS: ISOSORBIDE MONONITRATE 30 MG TABLET PO SCH (09:07)
[2018-12-30] MEDS: OMEGA 3 ACID ETHYL ESTERS 1 GM CAPSULE PO SCH ×2 (09:08→21:12)
[2018-12-30] MEDS: FUROSEMIDE 20 MG TABLET PO SCH ×2 (09:09→21:12)
[2018-12-30] MEDS: MYCOPHENOLATE MOFETIL 250 MG CAPSULE PO SCH ×2 (09:09→21:12)
[2018-12-30] MEDS: LISINOPRIL 20 MG TABLET PO SCH ×2 (09:09→21:12)
[2018-12-30] MEDS: SODIUM BICARBONATE 650 MG TABLET PO SCH ×2 (09:10→21:12)
[2018-12-30] MEDS: ASPIRIN EC 81 MG TABLET PO SCH (09:10)
[2018-12-30] MEDS: LOSARTAN 50 MG TABLET PO SCH (09:11)
[2018-12-30] MEDS: predniSONE 5 MG TABLET PO SCH (09:12)
[2018-12-30] MEDS: PANTOPRAZOLE 40 MG TABLET PO SCH ×2 (09:12→18:31)
[2018-12-30] MEDS: TACROLIMUS 0.5 MG CAPSULE PO SCH ×2 (09:12→21:10)
[2018-12-30] MEDS: SPIRONOLACTONE 25 MG TABLET PO SCH (09:12)
[2018-12-30] MEDS: CARVEDILOL 25 MG TABLET PO SCH ×2 (09:13→17:23)
[2018-12-30] MEDS: COLCHICINE 0.6 MG CAPSULE PO SCH (11:55)
[2018-12-30] MEDS ORDERED: FAMOTIDINE 20 MG/2 ML VIAL IV SCH (12:00)
[2018-12-30] MEDS ORDERED: DEXTROSE 50% 25 GM/50 ML VIAL IV PRN (13:00)
[2018-12-30] MEDS ORDERED: GLUCAGON 1 MG VIAL IM PRN (13:00)
[2018-12-30] MEDS ORDERED: DEXTROSE 10% 250 ML IV PRN (13:02)
[2018-12-30] MEDS: INSULIN REGULAR 100 UNIT/ML SUBCUT SCH ×2 (17:23→21:13)
[2018-12-30] MEDS ORDERED: SIMVASTATIN 10 MG TABLET PO SCH ×2 (21:00)
[2018-12-31] MEDS: ALUMINUM/MAGNES/SIMETH MAX STR 30 ML UDCUP PO PRN ×2 (04:38→09:34)
[2018-12-31 05:21] LABS: Calcium 9.2 MG/DL (8.5-10.1); Osmolality,Calculated 295.4 MOS/KG (273-304)
[2018-12-31 05:35] LABS: Basophils % 0.1 % (0.0-0.8); Eosinophils # 0.1 10*3/uL (0.0-0.87); Eosinophils % 1.1 % (0.00-10.9); Hematocrit 31.1 VOL% (35.7-47.0); Immature Granulocytes % 0.3 %; Immature Granulocytes Absolute 0.04 #; Lymphocytes # 1.2 10*3/uL (1.4-4.0); Lymphocytes % 10.7 % (21.3-54.2); Mean Corpuscular HGB Conc 32.2 GM/DL (32-36); Mean Corpuscular Volume 88.6 FL (87-102); Mean Platelet Volume 12.8 FL (9.6-12.0); Monocytes % 10.1 % (1.7-12.7); Neutrophils % 77.7 % (38.7-73.9); Platelet Count 174 T/CUMM (130-400); Red Blood Count 3.51 MC/CUMM (3.8-5.5); Red Cell Distribution Width 12.8 % (9.3-17.3); White Blood Count 11.5 T/CUMM (4-12)
[2018-12-31] MEDS: PANTOPRAZOLE 40 MG TABLET PO SCH ×2 (06:45→18:35)
[2018-12-31] MEDS: ONDANSETRON 4 MG/2 ML VIAL IV PRN (07:51)
[2018-12-31] MEDS: hydrALAZINE 20 MG/1 ML VIAL IV PRN (07:54)
[2018-12-31] MEDS: FUROSEMIDE 20 MG TABLET PO SCH ×3 (08:33→21:01)
[2018-12-31] MEDS: OMEGA 3 ACID ETHYL ESTERS 1 GM CAPSULE PO SCH ×3 (08:33→21:00)
[2018-12-31] MEDS: LISINOPRIL 20 MG TABLET PO SCH ×3 (08:33→21:01)
[2018-12-31] MEDS: COLCHICINE 0.6 MG CAPSULE PO SCH ×2 (08:34→09:32)
[2018-12-31] MEDS: LOSARTAN 50 MG TABLET PO SCH ×2 (08:34→09:32)
[2018-12-31] MEDS: ASPIRIN EC 81 MG TABLET PO SCH ×2 (08:34→09:33)
[2018-12-31] MEDS: SODIUM BICARBONATE 650 MG TABLET PO SCH ×3 (08:34→20:59)
[2018-12-31] MEDS: SPIRONOLACTONE 25 MG TABLET PO SCH ×2 (08:35→09:33)
[2018-12-31] MEDS: ISOSORBIDE MONONITRATE 30 MG TABLET PO SCH ×2 (08:39→09:32)
[2018-12-31] MEDS: CARVEDILOL 25 MG TABLET PO SCH ×3 (08:39→16:24)
[2018-12-31] MEDS: TACROLIMUS 0.5 MG CAPSULE PO SCH ×3 (08:40→21:01)
[2018-12-31] MEDS: INSULIN REGULAR 100 UNIT/ML SUBCUT SCH ×4 (08:40→21:02)
[2018-12-31] MEDS: predniSONE 5 MG TABLET PO SCH ×2 (08:40→09:33)
[2018-12-31] MEDS: MYCOPHENOLATE MOFETIL 250 MG CAPSULE PO SCH ×3 (08:40→21:01)
[2018-12-31] MEDS: SUCRALFATE 1 GM/10 ML UDCUP PO SCH ×3 (11:48→21:02)
[2019-01-01 05:03] LABS: Basophils % 0.2 % (0.0-0.8); Eosinophils # 0.1 10*3/uL (0.0-0.87); Eosinophils % 0.5 % (0.00-10.9); Hematocrit 30.8 VOL% (35.7-47.0); Hemoglobin 9.7 GM/DL (12.0-16.0); Immature Granulocytes % 0.6 %; Immature Granulocytes Absolute 0.08 #; Lymphocytes # 1.7 10*3/uL (1.4-4.0); Lymphocytes % 12.9 % (21.3-54.2); Mean Corpuscular HGB Conc 31.5 GM/DL (32-36); Mean Corpuscular Volume 90.1 FL (87-102); Mean Platelet Volume 12.2 FL (9.6-12.0); Monocytes % 11.4 % (1.7-12.7); Neutrophils % 74.4 % (38.7-73.9); Platelet Count 181 T/CUMM (130-400); Red Blood Count 3.42 MC/CUMM (3.8-5.5); Red Cell Distribution Width 12.8 % (9.3-17.3); White Blood Count 12.9 T/CUMM (4-12)
[2019-01-01] MEDS: HEPARIN 5,000 UNIT/1 ML VIAL SUBCUT SCH ×3 (05:10→20:31)
[2019-01-01 05:24] LABS: Calcium 8.7 MG/DL (8.5-10.1); Osmolality,Calculated 292.5 MOS/KG (273-304)
[2019-01-01] MEDS: PANTOPRAZOLE 40 MG TABLET PO SCH ×2 (07:02→18:06)
[2019-01-01] MEDS: OMEGA 3 ACID ETHYL ESTERS 1 GM CAPSULE PO SCH ×2 (08:59→20:30)
[2019-01-01] MEDS: predniSONE 5 MG TABLET PO SCH (09:00)
[2019-01-01] MEDS: LOSARTAN 50 MG TABLET PO SCH (09:00)
[2019-01-01] MEDS: LISINOPRIL 20 MG TABLET PO SCH ×2 (09:00→20:31)
[2019-01-01] MEDS: ISOSORBIDE MONONITRATE 30 MG TABLET PO SCH (09:00)
[2019-01-01] MEDS: SPIRONOLACTONE 25 MG TABLET PO SCH (09:00)
[2019-01-01] MEDS: CARVEDILOL 25 MG TABLET PO SCH ×2 (09:01→18:07)
[2019-01-01] MEDS: FUROSEMIDE 20 MG TABLET PO SCH ×2 (09:01→20:31)
[2019-01-01] MEDS: SODIUM BICARBONATE 650 MG TABLET PO SCH ×2 (09:01→20:30)
[2019-01-01] MEDS: ASPIRIN EC 81 MG TABLET PO SCH (09:02)
[2019-01-01] MEDS: TACROLIMUS 0.5 MG CAPSULE PO SCH ×2 (09:02→20:37)
[2019-01-01] MEDS: MYCOPHENOLATE MOFETIL 250 MG CAPSULE PO SCH ×2 (09:02→20:37)
[2019-01-01] MEDS: COLCHICINE 0.6 MG CAPSULE PO SCH (09:02)
[2019-01-01] MEDS: SUCRALFATE 1 GM/10 ML UDCUP PO SCH ×4 (09:03→20:34)
[2019-01-01] MEDS: INSULIN REGULAR 100 UNIT/ML SUBCUT SCH ×3 (09:32→18:34)
[2019-01-01] MEDS ORDERED: DICLOFENAC 1% GEL 100 GM TUBE TOP SCH (11:11)
[2019-01-01] MEDS: DICLOFENAC 1% GEL 100 GM TUBE TOP SCH ×3 (12:29→20:31)
[2019-01-02] MEDS: INSULIN REGULAR 100 UNIT/ML SUBCUT SCH ×3 (00:13→12:08)
[2019-01-02 05:14] LABS: Basophils % 0.3 % (0.0-0.8); Eosinophils # 0.1 10*3/uL (0.0-0.87); Eosinophils % 0.6 % (0.00-10.9); Hematocrit 27.3 VOL% (35.7-47.0); Hemoglobin 8.7 GM/DL (12.0-16.0); Immature Granulocytes % 0.4 %; Immature Granulocytes Absolute 0.05 #; Lymphocytes # 1.6 10*3/uL (1.4-4.0); Lymphocytes % 14.4 % (21.3-54.2); Mean Corpuscular HGB Conc 31.9 GM/DL (32-36); Mean Corpuscular Volume 90.4 FL (87-102); Mean Platelet Volume 12.5 FL (9.6-12.0); Monocytes % 10.4 % (1.7-12.7); Neutrophils % 73.9 % (38.7-73.9); Platelet Count 176 T/CUMM (130-400); Red Blood Count 3.02 MC/CUMM (3.8-5.5); Red Cell Distribution Width 12.5 % (9.3-17.3); White Blood Count 11.2 T/CUMM (4-12)
[2019-01-02] MEDS: HEPARIN 5,000 UNIT/1 ML VIAL SUBCUT SCH ×2 (05:14→12:46)
[2019-01-02 05:30] LABS: Calcium 8.4 MG/DL (8.5-10.1); Osmolality,Calculated 293.7 MOS/KG (273-304)
[2019-01-02] MEDS: ISOSORBIDE MONONITRATE 30 MG TABLET PO SCH (09:47)
[2019-01-02] MEDS: COLCHICINE 0.6 MG CAPSULE PO SCH (09:47)
[2019-01-02] MEDS: MYCOPHENOLATE MOFETIL 250 MG CAPSULE PO SCH (09:47)
[2019-01-02] MEDS: LOSARTAN 50 MG TABLET PO SCH (09:47)
[2019-01-02] MEDS: OMEGA 3 ACID ETHYL ESTERS 1 GM CAPSULE PO SCH (09:47)
[2019-01-02] MEDS: ASPIRIN EC 81 MG TABLET PO SCH (09:47)
[2019-01-02] MEDS: PANTOPRAZOLE 40 MG TABLET PO SCH (09:48)
[2019-01-02] MEDS: CARVEDILOL 25 MG TABLET PO SCH (09:48)
[2019-01-02] MEDS: predniSONE 5 MG TABLET PO SCH (09:48)
[2019-01-02] MEDS: LISINOPRIL 20 MG TABLET PO SCH (09:48)
[2019-01-02] MEDS: FUROSEMIDE 20 MG TABLET PO SCH (09:49)
[2019-01-02] MEDS: SPIRONOLACTONE 25 MG TABLET PO SCH (09:49)
[2019-01-02] MEDS: SUCRALFATE 1 GM/10 ML UDCUP PO SCH ×2 (09:50→12:41)
[2019-01-02] MEDS: TACROLIMUS 0.5 MG CAPSULE PO SCH (09:53)
[2019-01-02] MEDS: DICLOFENAC 1% GEL 100 GM TUBE TOP SCH (09:53)
[2019-01-02] MEDS: SODIUM BICARBONATE 650 MG TABLET PO SCH (09:53)
[2019-01-02 12:08] VITALS: BP 103/57
== END 2019-01-02 13:05 | disposition home or self-care (01) | DRG 392 ==
LOC: N.EDINP 06:50 → N.ED 06:50 → N.2E 10:36
PROVIDERS: ADMIT Internal Medicine; ATTEND Internal Medicine

== ENCOUNTER 2019-08-10 11:36 | Inpatient (IN) ==
[2019-08-10] MEDS ORDERED: hydrALAZINE 20 MG/1 ML VIAL IV STA (12:27)
[2019-08-10 12:28] LABS: Basophils % 0.5 % (0.0-0.8); Eosinophils # 0.3 10*3/uL (0.0-0.87); Hematocrit 24.1 VOL% (35.7-47.0); Hemoglobin 7.3 GM/DL (12.0-16.0); Immature Granulocytes % 0.5 %; Immature Granulocytes Absolute 0.04 #; Lymphocytes # 1.5 10*3/uL (1.4-4.0); Lymphocytes % 17.1 % (21.3-54.2); Mean Corpuscular HGB Conc 30.3 GM/DL (32-36); Mean Platelet Volume 11.6 FL (9.6-12.0); Monocytes % 10.7 % (1.7-12.7); Neutrophils % 68.2 % (38.7-73.9); Platelet Count 216 T/CUMM (130-400); Red Blood Count 2.51 MC/CUMM (3.8-5.5); Red Cell Distribution Width 13.7 % (9.3-17.3); White Blood Count 8.7 T/CUMM (4-12)
[2019-08-10 12:36] LABS: Partial Thromboplastin Time 25.3 SECS (20.8-36.0)
[2019-08-10 12:49] LABS: Alanine Aminotransferase 13 U/L (13-56); Albumin 3.1 G/DL (3.4-5.0); Alkaline Phosphatase 44 U/L (45-117); Aspartate Amino Transferase 16 U/L (0-37); Bilirubin,Total < 0.39 MG/DL (0.2-1.0); Blood Urea Nitrogen 86 MG/DL (7-18); Estimated Glom Filtration Rate 7 ML/MIN; Glucose 97 MG/DL (74-106); Osmolality,Calculated 302.5 MOS/KG (273-304); Total Protein 6.3 G/DL (6.4-8.3)
[2019-08-10 12:50] LABS: Troponin I 0.094 NG/ML (0.00-0.045)
[2019-08-10 13:04] LABS: Apearance,Urine CLEAR (Clear); Bilirubin,Urine Negative (Negative); Blood, Urine Negative (Negative); Glucose,Urine (UA) Negative (Negative); Ketones,Urine Negative (Negative); Mucus,Urine Occasional /LPF (Occasional); Nitrite,Urine Negative (Negative); Protein,Urine 100 MG/DL; RBC,Urine 1 /HPF (0-4); Squamous Epithelial Cell,Urine Occasional /HPF (0-10); Urine Color Straw (Yellow); Urine Specific Gravity 1.011 (1.001-1.035); Urine Urobilinogen < 2.0 EU/DL (0.2-1.0); WBC,Urine 1 /HPF (0-6)
[2019-08-10 13:26] LABS: Barbiturates Screen,Urine Negative (Negative); Benzodiazepines Screen,Urine Negative (Negative); Cannabinoid Screen,Urine Negative (Negative); Opiate Screen,Urine Negative (Negative); Phencyclidine Screen,Urine Negative (Negative)
[2019-08-10] MEDS ORDERED: ACETAMINOPHEN 325 MG TABLET PO PRN (13:52)
[2019-08-10] MEDS ORDERED: SODIUM CHLORIDE 0.9% 1,000 ML IV PRN (13:52)
[2019-08-10] MEDS ORDERED: PANTOPRAZOLE 40 MG VIAL IV STA (13:57)
[2019-08-10] MEDS ORDERED: cloNIDine 0.1 MG TABLET PO STA (14:00)
[2019-08-10] MEDS ORDERED: SODIUM CHLORIDE 0.9% 1,000 ML IV SCH (14:00)
[2019-08-10] MEDS ORDERED: DEXTROSE 10% 25 GM/250 ML BAG IV PRN (14:09)
[2019-08-10] MEDS ORDERED: GLUCAGON 1 MG VIAL IM PRN (14:09)
[2019-08-10] MEDS ORDERED: diphenhydrAMINE CAP 25 MG CAPSULE PO PRN (14:19)
[2019-08-10] MEDS: ISOSORBIDE MONONITRATE 30 MG TABLET PO SCH (16:52)
[2019-08-10] MEDS: carvediloL 25 MG TABLET PO SCH ×2 (16:52→21:37)
[2019-08-10] MEDS: INSULIN REGULAR 100 UNIT/ML SUBCUT SCH ×2 (16:57→21:37)
[2019-08-10] MEDS: INSULIN ASPART PROTAMINE/ASPART 70/30 100 UNIT/ML SUBCUT SCH ×2 (16:57→21:38)
[2019-08-10] MEDS ORDERED: DEXTROSE 5% NACL 0.9% 1,000 ML IV SCH (17:30)
[2019-08-10] MEDS: DEXTROSE 5% NACL 0.45% 1,000 ML IV SCH (17:48)
[2019-08-10] MEDS ORDERED: POTASSIUM CHLORIDE 20 MEQ TABLET PO PRN (17:54)
[2019-08-10 19:17] LABS: Basophils % 0.4 % (0.0-0.8); Eosinophils # 0.3 10*3/uL (0.0-0.87); Eosinophils % 3.6 % (0.00-10.9); Hematocrit 22.6 VOL% (35.7-47.0); Hematocrit 22.7 VOL% (35.7-47.0); Hemoglobin 7.1 GM/DL (12.0-16.0); Immature Granulocytes % 0.4 %; Immature Granulocytes Absolute 0.03 #; Lymphocytes # 1.5 10*3/uL (1.4-4.0); Lymphocytes % 20.4 % (21.3-54.2); Mean Corpuscular HGB Conc 31.4 GM/DL (32-36); Mean Corpuscular Volume 94.6 FL (87-102); Monocytes % 11.1 % (1.7-12.7); Neutrophils % 64.1 % (38.7-73.9); Platelet Count 201 T/CUMM (130-400); Red Blood Count 2.39 MC/CUMM (3.8-5.5); Red Cell Distribution Width 13.7 % (9.3-17.3); White Blood Count 7.4 T/CUMM (4-12)
[2019-08-10 20:02] LABS: Hematocrit 24.5 VOL% (35.7-47.0); Hemoglobin 7.4 GM/DL (12.0-16.0)
[2019-08-10 20:26] LABS: Sedimentation Rate-Westergren 126 MM/HR (0-30)
[2019-08-10] MEDS ORDERED: TACROLIMUS 0.5 MG CAPSULE PO SCH (21:00)
[2019-08-10] MEDS: MYCOPHENOLATE MOFETIL 250 MG CAPSULE PO SCH (21:36)
[2019-08-10] MEDS: SODIUM BICARBONATE 650 MG TABLET PO SCH (21:37)
[2019-08-10] MEDS: TACROLIMUS 0.5 MG CAPSULE PO SCH (21:37)
[2019-08-10] MEDS: TICAGRELOR 90 MG TABLET PO SCH (21:37)
[2019-08-10] MEDS: INSULIN GLARGINE 100 UNIT/ML SUBCUT SCH (21:37)
[2019-08-10] MEDS: PANTOPRAZOLE 40 MG VIAL IV SCH (21:38)
[2019-08-10 22:56] LABS: Folate > 24.0 NG/ML (5.4-24.0); Vitamin B12 1051 PG/ML (211-911)
[2019-08-11] MEDS ORDERED: ONDANSETRON 4 MG/2 ML VIAL IV PRN (05:37)
[2019-08-11] MEDS: hydrALAZINE 20 MG/1 ML VIAL IV PRN (05:40)
[2019-08-11] MEDS: ISOSORBIDE MONONITRATE 30 MG TABLET PO SCH (08:18)
[2019-08-11] MEDS: SODIUM BICARBONATE 650 MG TABLET PO SCH ×2 (08:19→20:40)
[2019-08-11] MEDS: carvediloL 25 MG TABLET PO SCH ×2 (08:19→20:40)
[2019-08-11] MEDS: CHOLECALCIFEROL 5,000 UNIT TABLET PO SCH (08:19)
[2019-08-11] MEDS: ROSUVASTATIN 20 MG TABLET PO SCH (08:19)
[2019-08-11] MEDS: predniSONE 5 MG TABLET PO SCH (08:19)
[2019-08-11] MEDS: MYCOPHENOLATE MOFETIL 250 MG CAPSULE PO SCH ×2 (08:19→20:40)
[2019-08-11] MEDS: PANTOPRAZOLE 40 MG VIAL IV SCH ×2 (08:20→20:42)
[2019-08-11] MEDS: INSULIN REGULAR 100 UNIT/ML SUBCUT SCH ×4 (08:20→20:49)
[2019-08-11] MEDS: TACROLIMUS 0.5 MG CAPSULE PO SCH ×2 (08:20→20:41)
[2019-08-11] MEDS: INSULIN ASPART PROTAMINE/ASPART 70/30 100 UNIT/ML SUBCUT SCH ×3 (08:20→20:10)
[2019-08-11] MEDS: TICAGRELOR 90 MG TABLET PO SCH (08:25)
[2019-08-11 09:00] LABS: Hemoglobin A1 (Alkaline) 97.3 % (96.5-98.5); Hemoglobin A2 (Alkaline) 2.7 % (1.5-3.5)
[2019-08-11] MEDS ORDERED: TACROLIMUS 0.5 MG CAPSULE PO SCH (09:00)
[2019-08-11] MEDS ORDERED: SULFAMETHOX/TRIMETHOPRIM 400-80 MG TABLET PO SCH (09:00)
[2019-08-11] MEDS: FUROSEMIDE 20 MG TABLET PO SCH ×2 (09:42→20:55)
[2019-08-11 10:43] LABS: Basophils % 0.3 % (0.0-0.8); Eosinophils # 0.2 10*3/uL (0.0-0.87); Eosinophils % 2.1 % (0.00-10.9); Hematocrit 28.2 VOL% (35.7-47.0); Hemoglobin 9.1 GM/DL (12.0-16.0); Immature Granulocytes % 0.3 %; Immature Granulocytes Absolute 0.03 #; Lymphocytes # 0.6 10*3/uL (1.4-4.0); Lymphocytes % 5.4 % (21.3-54.2); Mean Corpuscular HGB Conc 32.3 GM/DL (32-36); Mean Platelet Volume 11.5 FL (9.6-12.0); Neutrophils % 85.9 % (38.7-73.9); Platelet Count 213 T/CUMM (130-400); Red Cell Distribution Width 15.4 % (9.3-17.3); White Blood Count 11.4 T/CUMM (4-12)
[2019-08-11 10:59] LABS: Calcium 8.7 MG/DL (8.5-10.1); Osmolality,Calculated 305.5 MOS/KG (273-304)
[2019-08-11] MEDS: DEXTROSE 5% NACL 0.45% 1,000 ML IV SCH (14:16)
[2019-08-11] MEDS: INSULIN GLARGINE 100 UNIT/ML SUBCUT SCH (22:37)
[2019-08-12] MEDS: hydrALAZINE 20 MG/1 ML VIAL IV PRN (00:12)
[2019-08-12 05:06] LABS: Basophils % 0.2 % (0.0-0.8); Eosinophils # 0.2 10*3/uL (0.0-0.87); Eosinophils % 2.8 % (0.00-10.9); Hematocrit 26.6 VOL% (35.7-47.0); Hemoglobin 8.4 GM/DL (12.0-16.0); Immature Granulocytes % 0.2 %; Immature Granulocytes Absolute 0.02 #; Lymphocytes # 1.1 10*3/uL (1.4-4.0); Mean Corpuscular HGB Conc 31.6 GM/DL (32-36); Mean Corpuscular Volume 91.1 FL (87-102); Mean Platelet Volume 11.9 FL (9.6-12.0); Monocytes % 8.9 % (1.7-12.7); Neutrophils % 73.9 % (38.7-73.9); Platelet Count 199 T/CUMM (130-400); Red Blood Count 2.92 MC/CUMM (3.8-5.5); Red Cell Distribution Width 15.2 % (9.3-17.3); White Blood Count 8.1 T/CUMM (4-12)
[2019-08-12 05:31] LABS: Calcium 8.5 MG/DL (8.5-10.1)
[2019-08-12] MEDS: INSULIN REGULAR 100 UNIT/ML SUBCUT SCH ×4 (08:24→20:18)
[2019-08-12] MEDS ORDERED: SODIUM CHLORIDE 0.9% 1,000 ML IV PRN ×2 (08:37→09:32)
[2019-08-12] MEDS: carvediloL 25 MG TABLET PO SCH ×2 (09:16→21:18)
[2019-08-12] MEDS: ISOSORBIDE MONONITRATE 30 MG TABLET PO SCH (09:16)
[2019-08-12] MEDS: ASPIRIN EC 81 MG TABLET PO SCH (09:16)
[2019-08-12] MEDS: ROSUVASTATIN 20 MG TABLET PO SCH (09:16)
[2019-08-12] MEDS: predniSONE 5 MG TABLET PO SCH (09:17)
[2019-08-12] MEDS: INSULIN ASPART PROTAMINE/ASPART 70/30 100 UNIT/ML SUBCUT SCH ×3 (09:17→17:36)
[2019-08-12] MEDS: FUROSEMIDE 20 MG TABLET PO SCH ×2 (09:17→21:19)
[2019-08-12] MEDS: SODIUM BICARBONATE 650 MG TABLET PO SCH ×2 (09:17→21:18)
[2019-08-12] MEDS: CHOLECALCIFEROL 5,000 UNIT TABLET PO SCH (09:17)
[2019-08-12] MEDS: TACROLIMUS 0.5 MG CAPSULE PO SCH ×2 (09:17→21:20)
[2019-08-12] MEDS: MYCOPHENOLATE MOFETIL 250 MG CAPSULE PO SCH ×2 (09:17→21:19)
[2019-08-12] MEDS: PANTOPRAZOLE 40 MG VIAL IV SCH ×2 (09:17→21:20)
[2019-08-12] MEDS ORDERED: amLODIPine 5 MG TABLET PO SCH (09:30)
[2019-08-12] MEDS: DEXTROSE 5% NACL 0.45% 1,000 ML IV SCH (10:37)
[2019-08-12] MEDS: FLUTICASONE 50 MCG NASAL SPRAY 16 GM BOTTLE BOTH NARES SCH ×2 (10:47→21:19)
[2019-08-12] MEDS ORDERED: ISOSORBIDE MONONITRATE 60 MG TABLET PO SCH (10:50)
[2019-08-12] MEDS: INSULIN GLARGINE 100 UNIT/ML SUBCUT SCH (20:18)
[2019-08-12] MEDS: SILVER SULFADIAZINE 1% CREAM 25 GM TUBE TOP SCH (21:20)
[2019-08-13 04:53] LABS: Basophils % 0.2 % (0.0-0.8); Eosinophils # 0.1 10*3/uL (0.0-0.87); Eosinophils % 1.6 % (0.00-10.9); Hematocrit 28.2 VOL% (35.7-47.0); Immature Granulocytes % 0.3 %; Immature Granulocytes Absolute 0.03 #; Lymphocytes # 1.2 10*3/uL (1.4-4.0); Lymphocytes % 13.3 % (21.3-54.2); Mean Corpuscular HGB Conc 31.9 GM/DL (32-36); Mean Corpuscular Volume 91.3 FL (87-102); Mean Platelet Volume 11.9 FL (9.6-12.0); Neutrophils % 76.6 % (38.7-73.9); Platelet Count 195 T/CUMM (130-400); Red Blood Count 3.09 MC/CUMM (3.8-5.5); Red Cell Distribution Width 14.8 % (9.3-17.3); White Blood Count 8.7 T/CUMM (4-12)
[2019-08-13 05:11] LABS: Calcium 8.6 MG/DL (8.5-10.1); Osmolality,Calculated 302.5 MOS/KG (273-304)
[2019-08-13] MEDS: DEXTROSE 5% NACL 0.45% 1,000 ML IV SCH (07:08)
[2019-08-13] MEDS: INSULIN REGULAR 100 UNIT/ML SUBCUT SCH ×2 (07:50→11:55)
[2019-08-13] MEDS: ASPIRIN EC 81 MG TABLET PO SCH (08:34)
[2019-08-13] MEDS: SODIUM BICARBONATE 650 MG TABLET PO SCH (08:34)
[2019-08-13] MEDS: MYCOPHENOLATE MOFETIL 250 MG CAPSULE PO SCH (08:35)
[2019-08-13] MEDS: TACROLIMUS 0.5 MG CAPSULE PO SCH (08:35)
[2019-08-13] MEDS: ROSUVASTATIN 20 MG TABLET PO SCH (08:36)
[2019-08-13] MEDS: carvediloL 25 MG TABLET PO SCH (08:36)
[2019-08-13] MEDS: INSULIN ASPART PROTAMINE/ASPART 70/30 100 UNIT/ML SUBCUT SCH ×2 (08:37→12:06)
[2019-08-13] MEDS: CHOLECALCIFEROL 5,000 UNIT TABLET PO SCH (08:37)
[2019-08-13] MEDS: FUROSEMIDE 20 MG TABLET PO SCH (08:37)
[2019-08-13] MEDS: predniSONE 5 MG TABLET PO SCH (08:37)
[2019-08-13] MEDS: FLUTICASONE 50 MCG NASAL SPRAY 16 GM BOTTLE BOTH NARES SCH (08:41)
[2019-08-13] MEDS: PANTOPRAZOLE 40 MG VIAL IV SCH (08:41)
[2019-08-13] MEDS: SILVER SULFADIAZINE 1% CREAM 25 GM TUBE TOP SCH (08:42)
[2019-08-13] MEDS ORDERED: NITROGLYCERIN 0.1 MG/HR PATCH TRANSDERM SCH (10:00)
[2019-08-13 12:06] VITALS: BP 144/68
== END 2019-08-13 14:08 | disposition home or self-care (01) | DRG 378 ==
LOC: N.ED 11:36 → N.EDINP 13:52 → N.TELES 16:17
PROVIDERS: ADMIT Internal Medicine; ATTEND Internal Medicine

== ENCOUNTER 2019-11-01 12:01 | Inpatient (IN) ==
[2019-11-01] MEDS ORDERED: DEXTROSE 10% 250 ML BAG IV PRN (13:27)
[2019-11-01] MEDS ORDERED: GLUCAGON 1 MG VIAL IM PRN (13:27)
[2019-11-01 14:01] LABS: Basophils % 0.3 % (0.0-0.8); Eosinophils # 0.2 10*3/uL (0.0-0.87); Eosinophils % 1.5 % (0.00-10.9); Hematocrit 27.1 VOL% (35.7-47.0); Hemoglobin 8.3 GM/DL (12.0-16.0); Immature Granulocytes % 1.9 %; Immature Granulocytes Absolute 0.19 #; Lymphocytes # 0.7 10*3/uL (1.4-4.0); Lymphocytes % 6.7 % (21.3-54.2); Mean Corpuscular HGB Conc 30.6 GM/DL (32-36); Mean Corpuscular Volume 98.9 FL (87-102); Mean Platelet Volume 11.6 FL (9.6-12.0); Monocytes % 10.4 % (1.7-12.7); Neutrophils % 79.2 % (38.7-73.9); Platelet Count 222 T/CUMM (130-400); Red Blood Count 2.74 MC/CUMM (3.8-5.5); Red Cell Distribution Width 13.2 % (9.3-17.3); White Blood Count 10.2 T/CUMM (4-12)
[2019-11-01 14:24] LABS: Albumin 3.1 G/DL (3.4-5.0); Bilirubin,Total 0.4 MG/DL (0.2-1.0); Calcium 9.7 MG/DL (8.5-10.1); Osmolality,Calculated 322.8 MOS/KG (273-304); Total Protein 7.3 G/DL (6.4-8.3)
[2019-11-01] MEDS: carvediloL 25 MG TABLET PO SCH (17:22)
[2019-11-01] MEDS: INSULIN GLARGINE 100 UNIT/ML SUBCUT SCH (21:21)
[2019-11-01] MEDS: SODIUM BICARBONATE 650 MG TABLET PO SCH (21:22)
[2019-11-01] MEDS: PANTOPRAZOLE 40 MG TABLET PO SCH (21:22)
[2019-11-01] MEDS: MYCOPHENOLATE MOFETIL 250 MG CAPSULE PO SCH (21:23)
[2019-11-01] MEDS: TACROLIMUS 0.5 MG CAPSULE PO SCH (21:23)
[2019-11-01] MEDS: DOXYCYCLINE HYCLATE 100 MG CAPSULE PO SCH (21:25)
[2019-11-01] MEDS: FLUTICASONE 50 MCG NASAL SPRAY 16 GM BOTTLE BOTH NARES SCH (21:25)
[2019-11-01] MEDS: SULFAMETHOX/TRIMETHOPRIM 400-80 MG TABLET PO SCH (21:27)
[2019-11-02 06:08] LABS: Basophils % 0.3 % (0.0-0.8); Eosinophils # 0.2 10*3/uL (0.0-0.87); Eosinophils % 2.2 % (0.00-10.9); Hemoglobin 7.4 GM/DL (12.0-16.0); Immature Granulocytes % 1.4 %; Immature Granulocytes Absolute 0.12 #; Lymphocytes # 1.1 10*3/uL (1.4-4.0); Mean Corpuscular HGB Conc 30.8 GM/DL (32-36); Mean Platelet Volume 11.9 FL (9.6-12.0); Monocytes % 12.7 % (1.7-12.7); Neutrophils % 70.4 % (38.7-73.9); Platelet Count 216 T/CUMM (130-400); Red Blood Count 2.45 MC/CUMM (3.8-5.5); Red Cell Distribution Width 13.2 % (9.3-17.3); White Blood Count 8.6 T/CUMM (4-12)
[2019-11-02 06:14] LABS: PT Patient Result 11.2 SECS (9.8-11.9); Partial Thromboplastin Time 24.8 SECS (23.9-33.8)
[2019-11-02 06:38] LABS: Calcium 9.2 MG/DL (8.5-10.1); Osmolality,Calculated 326.1 MOS/KG (273-304)
[2019-11-02 07:27] LABS: Hepatitis B Core IgM Quant 0.08 Index; Hepatitis B Surface Ag Quant < 0.10 Index; Hepatitis B Surface Ag Result Negative (Negative); Hepatitis C Virus Ab Quant 0.09 Index; Hepatitis C Virus Ab Result Negative (Negative)
[2019-11-02] MEDS ORDERED: BUPIVACAINE MPF 0.25% 30 ML VIAL ONE (08:24)
[2019-11-02] MEDS ORDERED: LIDOCAINE 1%/EPI INJ 20 ML VIAL ONE (08:24)
[2019-11-02] MEDS ORDERED: HEPARIN 5,000 UNIT/1 ML VIAL ONE (08:27)
[2019-11-02] MEDS: carvediloL 25 MG TABLET PO SCH ×2 (08:59→17:36)
[2019-11-02] MEDS ORDERED: ceFAZolin 1,000 MG VIAL ONE (09:53)
[2019-11-02] MEDS ORDERED: SODIUM CHLORIDE 0.9% 250 ML IV SCH (10:00)
[2019-11-02] MEDS ORDERED: propofoL 200 MG/20 ML VIAL IV ONE (10:32)
[2019-11-02] MEDS ORDERED: fentaNYL 100 MCG/2 ML VIAL ONE (10:33)
[2019-11-02] MEDS ORDERED: LIDOCAINE 2% 5 ML VIAL ONE (10:33)
[2019-11-02] MEDS ORDERED: MIDAZOLAM 2 MG/2 ML VIAL ONE (10:33)
[2019-11-02] MEDS: ASPIRIN EC 81 MG TABLET PO SCH (12:08)
[2019-11-02] MEDS: FLUTICASONE 50 MCG NASAL SPRAY 16 GM BOTTLE BOTH NARES SCH ×2 (12:08→21:40)
[2019-11-02] MEDS: MYCOPHENOLATE MOFETIL 250 MG CAPSULE PO SCH ×2 (12:09→21:33)
[2019-11-02] MEDS: ISOSORBIDE MONONITRATE 60 MG TABLET PO SCH ×2 (12:09→21:33)
[2019-11-02] MEDS: SODIUM BICARBONATE 650 MG TABLET PO SCH ×2 (12:09→21:32)
[2019-11-02] MEDS: PANTOPRAZOLE 40 MG TABLET PO SCH ×2 (12:10→21:33)
[2019-11-02] MEDS: predniSONE 5 MG TABLET PO SCH (12:10)
[2019-11-02] MEDS: DOXYCYCLINE HYCLATE 100 MG CAPSULE PO SCH ×2 (12:11→21:40)
[2019-11-02] MEDS: ROSUVASTATIN 20 MG TABLET PO SCH (12:11)
[2019-11-02] MEDS: CHOLECALCIFEROL 5,000 UNIT TABLET PO SCH (12:11)
[2019-11-02] MEDS: TACROLIMUS 0.5 MG CAPSULE PO SCH ×2 (12:11→21:33)
[2019-11-02] MEDS ORDERED: SODIUM CHLORIDE 0.9% 1,000 ML IV PRN (15:05)
[2019-11-02] MEDS ORDERED: HEPARIN 10,000 UNIT/10 ML VIAL IV SCH (15:30)
[2019-11-02] MEDS: ONDANSETRON 4 MG/2 ML VIAL IV PRN (20:17)
[2019-11-02] MEDS: FERROUS SULFATE 325 MG TABLET PO SCH (21:33)
[2019-11-02] MEDS: INSULIN GLARGINE 100 UNIT/ML SUBCUT SCH (21:34)
[2019-11-03] MEDS: CHOLECALCIFEROL 5,000 UNIT TABLET PO SCH (08:59)
[2019-11-03] MEDS: ISOSORBIDE MONONITRATE 60 MG TABLET PO SCH (09:00)
[2019-11-03] MEDS: predniSONE 5 MG TABLET PO SCH (09:00)
[2019-11-03] MEDS: TACROLIMUS 0.5 MG CAPSULE PO SCH ×2 (09:00→21:42)
[2019-11-03] MEDS: ASPIRIN EC 81 MG TABLET PO SCH (09:00)
[2019-11-03] MEDS: SULFAMETHOX/TRIMETHOPRIM 400-80 MG TABLET PO SCH (09:00)
[2019-11-03] MEDS: SODIUM BICARBONATE 650 MG TABLET PO SCH ×2 (09:00→21:42)
[2019-11-03] MEDS: ROSUVASTATIN 20 MG TABLET PO SCH (09:00)
[2019-11-03] MEDS: MYCOPHENOLATE MOFETIL 250 MG CAPSULE PO SCH ×2 (09:00→21:42)
[2019-11-03] MEDS: carvediloL 25 MG TABLET PO SCH ×2 (09:00→16:46)
[2019-11-03] MEDS: DOXYCYCLINE HYCLATE 100 MG CAPSULE PO SCH ×2 (09:01→21:42)
[2019-11-03] MEDS: PANTOPRAZOLE 40 MG TABLET PO SCH ×2 (09:01→21:43)
[2019-11-03] MEDS: FERROUS SULFATE 325 MG TABLET PO SCH ×3 (09:01→23:06)
[2019-11-03] MEDS: FLUTICASONE 50 MCG NASAL SPRAY 16 GM BOTTLE BOTH NARES SCH ×2 (09:01→23:06)
[2019-11-03] MEDS: ONDANSETRON 4 MG/2 ML VIAL IV PRN ×2 (10:42→16:15)
[2019-11-03 16:29] LABS: Hematocrit 34.2 VOL% (35.7-47.0); Hemoglobin 10.8 GM/DL (12.0-16.0)
[2019-11-03] MEDS ORDERED: hydrALAZINE 20 MG/1 ML VIAL IV PRN (17:46)
[2019-11-03] MEDS: INSULIN GLARGINE 100 UNIT/ML SUBCUT SCH (21:54)
[2019-11-04 07:35] VITALS: BP 184/75
[2019-11-04] MEDS ORDERED: amLODIPine 5 MG TABLET PO SCH (09:00)
[2019-11-04] MEDS: ROSUVASTATIN 20 MG TABLET PO SCH (09:35)
[2019-11-04] MEDS: CHOLECALCIFEROL 5,000 UNIT TABLET PO SCH (09:35)
[2019-11-04] MEDS: TACROLIMUS 0.5 MG CAPSULE PO SCH (09:35)
[2019-11-04] MEDS: SODIUM BICARBONATE 650 MG TABLET PO SCH (09:36)
[2019-11-04] MEDS: MYCOPHENOLATE MOFETIL 250 MG CAPSULE PO SCH (09:37)
[2019-11-04] MEDS: PANTOPRAZOLE 40 MG TABLET PO SCH (09:38)
[2019-11-04] MEDS: carvediloL 25 MG TABLET PO SCH (09:38)
[2019-11-04] MEDS: ASPIRIN EC 81 MG TABLET PO SCH (09:38)
[2019-11-04] MEDS: predniSONE 5 MG TABLET PO SCH (09:38)
[2019-11-04] MEDS: FERROUS SULFATE 325 MG TABLET PO SCH (09:38)
[2019-11-04] MEDS: DOXYCYCLINE HYCLATE 100 MG CAPSULE PO SCH (09:43)
[2019-11-04] MEDS: FLUTICASONE 50 MCG NASAL SPRAY 16 GM BOTTLE BOTH NARES SCH (09:43)
== END 2019-11-04 10:25 | disposition home or self-care (01) | DRG 698 ==
LOC: N.3E 12:44 → SUATTDRO 12:44
PROVIDERS: ADMIT Internal Medicine; ATTEND Family Medicine

== ENCOUNTER 2020-05-05 18:18 | Inpatient (IN) ==
[2020-05-05 19:25] LABS: Basophils % 0.3 % (0.0-0.8); Hematocrit 38.4 VOL% (35.7-47.0); Hemoglobin 12.4 GM/DL (12.0-16.0); Immature Granulocytes % 0.3 %; Immature Granulocytes Absolute 0.02 #; Lymphocytes # 1.6 10*3/uL (1.4-4.0); Lymphocytes % 26.6 % (21.3-54.2); Mean Corpuscular HGB Conc 32.3 GM/DL (32-36); Mean Corpuscular Volume 94.6 FL (87-102); Monocytes % 7.1 % (1.7-12.7); Neutrophils % 65.7 % (38.7-73.9); Platelet Count 161 T/CUMM (130-400); Red Blood Count 4.06 MC/CUMM (3.8-5.5); Red Cell Distribution Width 14.4 % (9.3-17.3); White Blood Count 6.1 T/CUMM (4-12)
[2020-05-05] MEDS ORDERED: cefTRIAXone 1,000 MG in SODIUM CHLORIDE 0.9% 100 ML IV STA (19:28)
[2020-05-05] MEDS ORDERED: DEXAMETHASONE 4 MG/1 ML VIAL IV ONE (19:28)
[2020-05-05] MEDS ORDERED: ALBUTEROL/IPRATROPIUM 3 ML NEB RESP TX STA (19:29)
[2020-05-05 19:51] LABS: Albumin 2.9 G/DL (3.4-5.0); Bilirubin,Total 0.5 MG/DL (0.2-1.0); Calcium 8.3 MG/DL (8.5-10.1); Osmolality,Calculated 281.1 MOS/KG (273-304); Total Protein 6.9 G/DL (6.4-8.3)
[2020-05-05] MEDS ORDERED: ASPIRIN CHEW 81 MG TABLET PO STA (20:07)
[2020-05-05] MEDS ORDERED: ENOXAPARIN 30 MG/0.3 ML SYRINGE SUBCUT STA (20:07)
[2020-05-05] MEDS ORDERED: ENOXAPARIN 80 MG/0.8 ML SYRINGE SUBCUT ONE (20:09)
[2020-05-05] MEDS ORDERED: ASPIRIN 325 MG TABLET ONE (20:09)
[2020-05-05 20:42] LABS: ABG Base Excess 4.1 MMOL/L (-2.5-2.5); ABG HCO3 28.3 MMOL/L (20-26); ABG Oxygen Saturation 93.4 % (95-100); ABG PCO2 41.1 MM HG (35-48); ABG PH 7.456 (7.35-7.45); ABG PO2 70.3 MM HG (80-95); ABG TCO2 29.6 MMOL/L (23-27); Allen Test Positive
[2020-05-05] MEDS ORDERED: DEXTROSE 50% 25 GM/50 ML VIAL IV PRN (20:54)
[2020-05-05] MEDS ORDERED: NICOTINE 21 MG/24 HR PATCH TRANSDERM PRN (20:54)
[2020-05-05] MEDS ORDERED: MORPHINE 4 MG/1 ML VIAL IV PRN (20:54)
[2020-05-05] MEDS ORDERED: GLUCAGON 1 MG VIAL IM PRN (20:54)
[2020-05-05] MEDS ORDERED: hydrALAZINE 20 MG/1 ML VIAL IV PRN (20:54)
[2020-05-05] MEDS ORDERED: ONDANSETRON 4 MG/2 ML VIAL IV PRN (20:54)
[2020-05-05 21:23] LABS: Bacteria,Urine Moderate /HPF (Few); Bilirubin,Urine Negative (Negative); Blood, Urine Negative (Negative); Glucose,Urine (UA) Negative (Negative); Ketones,Urine Negative (Negative); Nitrite,Urine Negative (Negative); Protein,Urine >=500 MG/DL; Squamous Epithelial Cell,Urine Occasional /HPF (0-10); Urine Appearance CLOUDY (Clear); Urine Color Amber (Yellow); Urine Specific Gravity 1.022 (1.001-1.035); Urine Urobilinogen < 2.0 EU/DL (0.2-1.0); WBC,Urine 2 /HPF (0-6)
[2020-05-06] MEDS: AZITHROMYCIN 250 MG TABLET PO SCH ×2 (00:12→08:29)
[2020-05-06] MEDS: INSULIN REGULAR 100 UNIT/ML SUBCUT SCH ×5 (00:50→21:22)
[2020-05-06] MEDS ORDERED: PNEUMOCOCCAL VACCINE (13 VALENT) 0.5 ML SYRINGE IM ONE (03:09)
[2020-05-06 04:07] LABS: Basophils % 0.2 % (0.0-0.8); Hematocrit 42.5 VOL% (35.7-47.0); Hemoglobin 13.5 GM/DL (12.0-16.0); Immature Granulocytes % 0.3 %; Immature Granulocytes Absolute 0.02 #; Lymphocytes # 0.8 10*3/uL (1.4-4.0); Lymphocytes % 13.6 % (21.3-54.2); Mean Corpuscular HGB Conc 31.8 GM/DL (32-36); Mean Corpuscular Volume 95.1 FL (87-102); Mean Platelet Volume 12.7 FL (9.6-12.0); Monocytes % 3.1 % (1.7-12.7); Neutrophils % 82.8 % (38.7-73.9); Platelet Count 158 T/CUMM (130-400); Red Blood Count 4.47 MC/CUMM (3.8-5.5); Red Cell Distribution Width 14.3 % (9.3-17.3); White Blood Count 5.9 T/CUMM (4-12)
[2020-05-06 04:47] LABS: Albumin 2.7 G/DL (3.4-5.0); Bilirubin,Total 0.4 MG/DL (0.2-1.0); Calcium 8.6 MG/DL (8.5-10.1); Osmolality,Calculated 281.4 MOS/KG (273-304); Total Protein 7.6 G/DL (6.4-8.3)
[2020-05-06 05:38] LABS: Ferritin 1243.2 ng/ml (8-252)
[2020-05-06] MEDS: carvediloL 25 MG TABLET PO SCH ×2 (08:28→21:21)
[2020-05-06] MEDS: ASPIRIN 325 MG TABLET PO SCH (08:28)
[2020-05-06] MEDS: DEXAMETHASONE 4 MG/1 ML VIAL IV SCH ×2 (08:29→21:21)
[2020-05-06] MEDS: ROSUVASTATIN 20 MG TABLET PO SCH (08:29)
[2020-05-06] MEDS: ISOSORBIDE MONONITRATE 60 MG TABLET PO SCH (09:02)
[2020-05-06] MEDS: guaiFENesin/DM ER 600-30 MG TABLET PO PRN (18:23)
[2020-05-06] MEDS: cefTRIAXone 1,000 MG in SODIUM CHLORIDE 0.9% 100 ML IV SCH (21:22)
[2020-05-06] MEDS: ACETAMINOPHEN 325 MG TABLET PO PRN (21:23)
[2020-05-06] MEDS: HEPARIN 5,000 UNIT/1 ML VIAL SUBCUT SCH (21:24)
[2020-05-07 03:48] LABS: Basophils % 0.3 % (0.0-0.8); Hemoglobin 11.5 GM/DL (12.0-16.0); Immature Granulocytes % 0.9 %; Immature Granulocytes Absolute 0.08 #; Lymphocytes % 11.2 % (21.3-54.2); Mean Corpuscular HGB Conc 31.1 GM/DL (32-36); Mean Corpuscular Volume 96.4 FL (87-102); Mean Platelet Volume 12.2 FL (9.6-12.0); Monocytes % 4.9 % (1.7-12.7); Neutrophils % 82.7 % (38.7-73.9); Platelet Count 158 T/CUMM (130-400); Red Blood Count 3.84 MC/CUMM (3.8-5.5); Red Cell Distribution Width 14.5 % (9.3-17.3); White Blood Count 8.9 T/CUMM (4-12)
[2020-05-07 04:21] LABS: Ferritin 1203.6 ng/ml (8-252)
[2020-05-07 05:14] LABS: Calcium 8.7 MG/DL (8.5-10.1); Osmolality,Calculated 285.9 MOS/KG (273-304)
[2020-05-07 05:28] LABS: Band Neutrophils 2 % (0-10); Hypochromasia 1+; Lymphocytes 11 % (20-55); Segmented Neutrophils 85 % (50-85); Total Cells Counted 100
[2020-05-07 05:29] LABS: Macrocytosis Slight; Platelet Estimate Adequate; Tear Drop Cells Slight
[2020-05-07] MEDS: INSULIN REGULAR 100 UNIT/ML SUBCUT SCH ×4 (08:11→20:49)
[2020-05-07] MEDS: HEPARIN 5,000 UNIT/1 ML VIAL SUBCUT SCH ×3 (08:11→21:19)
[2020-05-07] MEDS: carvediloL 25 MG TABLET PO SCH ×3 (08:12→21:18)
[2020-05-07] MEDS: DEXAMETHASONE 4 MG/1 ML VIAL IV SCH ×2 (08:12→21:18)
[2020-05-07] MEDS: ROSUVASTATIN 20 MG TABLET PO SCH ×2 (08:12→12:58)
[2020-05-07] MEDS: ISOSORBIDE MONONITRATE 60 MG TABLET PO SCH ×2 (08:12→12:58)
[2020-05-07] MEDS: ASPIRIN 325 MG TABLET PO SCH ×2 (08:12→12:58)
[2020-05-07] MEDS: AZITHROMYCIN 250 MG TABLET PO SCH ×2 (08:13→12:58)
[2020-05-07] MEDS ORDERED: HEPARIN 10,000 UNIT/10 ML VIAL ONE (10:10)
[2020-05-07] MEDS ORDERED: HEPARIN 10,000 UNIT/10 ML VIAL IV SCH (10:45)
[2020-05-07] MEDS: diphenhydrAMINE CAP 25 MG CAPSULE PO PRN (21:18)
[2020-05-07] MEDS: cefTRIAXone 1,000 MG in SODIUM CHLORIDE 0.9% 100 ML IV SCH (21:18)
[2020-05-07] MEDS: ACETAMINOPHEN 325 MG TABLET PO PRN (21:19)
[2020-05-08 03:49] LABS: Basophils # 0.1 10*3/uL (0.0-0.2); Basophils % 0.5 % (0.0-0.8); Hematocrit 44.7 VOL% (35.7-47.0); Hemoglobin 14.7 GM/DL (12.0-16.0); Immature Granulocytes % 0.5 %; Immature Granulocytes Absolute 0.06 #; Lymphocytes # 1.6 10*3/uL (1.4-4.0); Lymphocytes % 12.3 % (21.3-54.2); Mean Corpuscular HGB Conc 32.9 GM/DL (32-36); Mean Corpuscular Volume 90.7 FL (87-102); Mean Platelet Volume 12.4 FL (9.6-12.0); Monocytes % 5.2 % (1.7-12.7); NRBC # 0.02 10*3/uL; Neutrophils % 81.5 % (38.7-73.9); Platelet Count 207 T/CUMM (130-400); Red Blood Count 4.93 MC/CUMM (3.8-5.5); Red Cell Distribution Width 14.4 % (9.3-17.3); White Blood Count 12.8 T/CUMM (4-12)
[2020-05-08 04:23] LABS: Calcium 9.1 MG/DL (8.5-10.1); Osmolality,Calculated 283.8 MOS/KG (273-304)
[2020-05-08 04:28] LABS: Ferritin 1637.4 ng/ml (8-252)
[2020-05-08 04:30] LABS: Lymphocytes 12 % (20-55); Platelet Estimate Adequate; Segmented Neutrophils 85 % (50-85); Total Cells Counted 100
[2020-05-08 04:31] LABS: Macrocytosis Slight
[2020-05-08] MEDS: AZITHROMYCIN 250 MG TABLET PO SCH (08:55)
[2020-05-08] MEDS: DEXAMETHASONE 4 MG/1 ML VIAL IV SCH ×2 (08:55→20:56)
[2020-05-08] MEDS: ASPIRIN 325 MG TABLET PO SCH (08:55)
[2020-05-08] MEDS: HEPARIN 5,000 UNIT/1 ML VIAL SUBCUT SCH ×2 (08:55→20:55)
[2020-05-08] MEDS: carvediloL 25 MG TABLET PO SCH ×2 (08:55→20:56)
[2020-05-08] MEDS: ISOSORBIDE MONONITRATE 60 MG TABLET PO SCH (08:55)
[2020-05-08] MEDS: ROSUVASTATIN 20 MG TABLET PO SCH (08:55)
[2020-05-08] MEDS: INSULIN REGULAR 100 UNIT/ML SUBCUT SCH ×4 (08:55→20:56)
[2020-05-08] MEDS ORDERED: SODIUM CHLORIDE 0.9% 1,000 ML IV PRN (11:03)
[2020-05-08] MEDS: cefTRIAXone 1,000 MG in SODIUM CHLORIDE 0.9% 100 ML IV SCH (20:58)
[2020-05-08] MEDS: guaiFENesin/DM ER 600-30 MG TABLET PO PRN (21:28)
[2020-05-09 05:37] LABS: Basophils % 0.2 % (0.0-0.8); Eosinophils % 0.1 % (0.00-10.9); Hematocrit 40.3 VOL% (35.7-47.0); Hemoglobin 13.4 GM/DL (12.0-16.0); Immature Granulocytes % 3.5 %; Immature Granulocytes Absolute 0.86 #; Lymphocytes # 1.9 10*3/uL (1.4-4.0); Lymphocytes % 7.4 % (21.3-54.2); Mean Corpuscular HGB Conc 33.3 GM/DL (32-36); Mean Corpuscular Volume 90.8 FL (87-102); Mean Platelet Volume 11.5 FL (9.6-12.0); Monocytes % 5.1 % (1.7-12.7); NRBC # 0.05 10*3/uL; Neutrophils % 83.7 % (38.7-73.9); Platelet Count 272 T/CUMM (130-400); Red Blood Count 4.44 MC/CUMM (3.8-5.5); Red Cell Distribution Width 14.6 % (9.3-17.3); White Blood Count 24.9 T/CUMM (4-12)
[2020-05-09 06:00] LABS: Band Neutrophils 1 % (0-10); Hypochromasia 1+; Lymphocytes 5 % (20-55); Platelet Estimate Adequate; Segmented Neutrophils 90 % (50-85); Total Cells Counted 100
[2020-05-09 06:01] LABS: Macrocytosis Slight
[2020-05-09 06:03] LABS: Ferritin 1870.7 ng/ml (8-252)
[2020-05-09 06:17] LABS: Osmolality,Calculated 307.5 MOS/KG (273-304)
[2020-05-09] MEDS: INSULIN REGULAR 100 UNIT/ML SUBCUT SCH ×4 (08:35→21:12)
[2020-05-09] MEDS: HEPARIN 5,000 UNIT/1 ML VIAL SUBCUT SCH ×2 (08:36→19:49)
[2020-05-09] MEDS: carvediloL 25 MG TABLET PO SCH (08:37)
[2020-05-09] MEDS: ROSUVASTATIN 20 MG TABLET PO SCH (09:07)
[2020-05-09] MEDS: DEXAMETHASONE 4 MG/1 ML VIAL IV SCH ×2 (09:07→20:24)
[2020-05-09] MEDS: ISOSORBIDE MONONITRATE 60 MG TABLET PO SCH (09:07)
[2020-05-09] MEDS: ASPIRIN 325 MG TABLET PO SCH (09:07)
[2020-05-09] MEDS: AZITHROMYCIN 250 MG TABLET PO SCH (09:07)
[2020-05-09 12:06] LABS: ABG Base Excess -1.2 MMOL/L (-2.5-2.5); ABG HCO3 22.9 MMOL/L (20-26); ABG Oxygen Saturation 74.7 % (95-100); ABG PCO2 30.2 MM HG (35-48); ABG PH 7.462 (7.35-7.45); ABG PO2 45.6 MM HG (80-95)
[2020-05-09 12:30] LABS: Troponin I 0.665 NG/ML (0.00-0.045)
[2020-05-09] MEDS: cefTRIAXone 1,000 MG in SODIUM CHLORIDE 0.9% 100 ML IV SCH (20:24)
[2020-05-10 04:17] LABS: Basophils # 0.1 10*3/uL (0.0-0.2); Basophils % 0.6 % (0.0-0.8); Hematocrit 38.6 VOL% (35.7-47.0); Hemoglobin 12.7 GM/DL (12.0-16.0); Immature Granulocytes % 6.2 %; Immature Granulocytes Absolute 1.55 #; Lymphocytes # 1.8 10*3/uL (1.4-4.0); Mean Corpuscular HGB Conc 32.9 GM/DL (32-36); Mean Corpuscular Volume 91.3 FL (87-102); Mean Platelet Volume 11.5 FL (9.6-12.0); Monocytes % 6.1 % (1.7-12.7); NRBC # 0.09 10*3/uL; Neutrophils % 80.1 % (38.7-73.9); Platelet Count 221 T/CUMM (130-400); Red Blood Count 4.23 MC/CUMM (3.8-5.5); Red Cell Distribution Width 14.5 % (9.3-17.3); White Blood Count 25.1 T/CUMM (4-12)
[2020-05-10 04:46] LABS: Calcium 8.6 MG/DL (8.5-10.1); Osmolality,Calculated 304.2 MOS/KG (273-304)
[2020-05-10 04:51] LABS: Ferritin 2418.4 ng/ml (8-252)
[2020-05-10 04:55] LABS: Band Neutrophils 4 % (0-10); Lymphocytes 5 % (20-55); Macrocytosis Slight; Platelet Estimate Adequate; Segmented Neutrophils 85 % (50-85); Total Cells Counted 100
[2020-05-10] MEDS: DEXAMETHASONE 4 MG/1 ML VIAL IV SCH ×2 (08:00→22:00)
[2020-05-10] MEDS: ROSUVASTATIN 20 MG TABLET PO SCH (08:02)
[2020-05-10] MEDS: ASPIRIN 325 MG TABLET PO SCH (08:02)
[2020-05-10] MEDS: AZITHROMYCIN 250 MG TABLET PO SCH (08:02)
[2020-05-10] MEDS: INSULIN REGULAR 100 UNIT/ML SUBCUT SCH ×4 (08:02→21:01)
[2020-05-10] MEDS: HEPARIN 5,000 UNIT/1 ML VIAL SUBCUT SCH ×2 (08:03→22:02)
[2020-05-10] MEDS: carvediloL 25 MG TABLET PO SCH ×2 (12:22→22:00)
[2020-05-10] MEDS: ACETAMINOPHEN 325 MG TABLET PO PRN (22:01)
[2020-05-10] MEDS: diphenhydrAMINE CAP 25 MG CAPSULE PO PRN (22:01)
[2020-05-10] MEDS: cefTRIAXone 1,000 MG in SODIUM CHLORIDE 0.9% 100 ML IV SCH (22:01)
[2020-05-11] MEDS: VANCOMYCIN 50 MG/ML 60 ML/BOTTLE PO SCH ×4 (00:51→18:30)
[2020-05-11] MEDS: HEPARIN 5,000 UNIT/1 ML VIAL SUBCUT SCH ×2 (09:23→22:20)
[2020-05-11] MEDS: INSULIN REGULAR 100 UNIT/ML SUBCUT SCH ×4 (09:23→22:00)
[2020-05-11] MEDS: ASPIRIN 325 MG TABLET PO SCH (09:24)
[2020-05-11] MEDS: carvediloL 25 MG TABLET PO SCH ×2 (09:24→22:04)
[2020-05-11] MEDS: DEXAMETHASONE 4 MG/1 ML VIAL IV SCH ×2 (09:24→22:20)
[2020-05-11] MEDS: AZITHROMYCIN 250 MG TABLET PO SCH (09:24)
[2020-05-11] MEDS: ROSUVASTATIN 20 MG TABLET PO SCH (09:24)
[2020-05-11 14:52] LABS: Basophils # 0.2 10*3/uL (0.0-0.2); Basophils % 0.5 % (0.0-0.8); Hematocrit 40.4 VOL% (35.7-47.0); Hemoglobin 13.5 GM/DL (12.0-16.0); Immature Granulocytes Absolute 1.99 #; Lymphocytes # 1.3 10*3/uL (1.4-4.0); Lymphocytes % 3.8 % (21.3-54.2); Mean Corpuscular HGB Conc 33.4 GM/DL (32-36); Mean Corpuscular Volume 90.6 FL (87-102); Mean Platelet Volume 11.4 FL (9.6-12.0); Monocytes % 4.3 % (1.7-12.7); NRBC # 0.11 10*3/uL; Neutrophils % 85.4 % (38.7-73.9); Platelet Count 279 T/CUMM (130-400); Red Blood Count 4.46 MC/CUMM (3.8-5.5); Red Cell Distribution Width 14.4 % (9.3-17.3); White Blood Count 33.2 T/CUMM (4-12)
[2020-05-11 15:16] LABS: Osmolality,Calculated 272.1 MOS/KG (273-304)
[2020-05-11 15:32] LABS: Ferritin 3343.4 ng/ml (8-252)
[2020-05-11 18:35] LABS: Lymphocytes 4 % (20-55); Segmented Neutrophils 84 % (50-85); Total Cells Counted 100
[2020-05-11] MEDS: cefTRIAXone 1,000 MG in SODIUM CHLORIDE 0.9% 100 ML IV SCH (22:20)
[2020-05-11] MEDS: diphenhydrAMINE CAP 25 MG CAPSULE PO PRN (22:21)
[2020-05-11] MEDS: ACETAMINOPHEN 325 MG TABLET PO PRN (22:21)
[2020-05-12] MEDS: VANCOMYCIN 50 MG/ML 60 ML/BOTTLE PO SCH ×5 (00:17→23:53)
[2020-05-12 10:03] LABS: Calcium 9.1 MG/DL (8.5-10.1); Osmolality,Calculated 300.8 MOS/KG (273-304)
[2020-05-12] MEDS: ZINC SULFATE 220 MG CAPSULE PO SCH (10:57)
[2020-05-12] MEDS: ASPIRIN 325 MG TABLET PO SCH (10:57)
[2020-05-12] MEDS: ROSUVASTATIN 20 MG TABLET PO SCH (10:57)
[2020-05-12] MEDS: AZITHROMYCIN 250 MG TABLET PO SCH (10:57)
[2020-05-12] MEDS: HEPARIN 5,000 UNIT/1 ML VIAL SUBCUT SCH ×2 (10:57→22:03)
[2020-05-12] MEDS: ASCORBIC ACID 500 MG TABLET PO SCH (10:57)
[2020-05-12] MEDS: carvediloL 25 MG TABLET PO SCH ×2 (10:57→22:01)
[2020-05-12] MEDS ORDERED: POTASSIUM CHLORIDE 10 MEQ TABLET PO ONE (10:58)
[2020-05-12] MEDS: DEXAMETHASONE 4 MG/1 ML VIAL IV SCH ×2 (11:19→22:01)
[2020-05-12] MEDS: INSULIN REGULAR 100 UNIT/ML SUBCUT SCH ×4 (11:20→22:02)
[2020-05-12] MEDS: cefTRIAXone 1,000 MG in SODIUM CHLORIDE 0.9% 100 ML IV SCH (22:01)
[2020-05-12] MEDS: INSULIN GLARGINE 100 UNIT/ML SUBCUT SCH (22:02)
[2020-05-12] MEDS: ACETAMINOPHEN 325 MG TABLET PO PRN (22:03)
[2020-05-12] MEDS: diphenhydrAMINE CAP 25 MG CAPSULE PO PRN (22:03)
[2020-05-13 05:09] LABS: Basophils % 0.1 % (0.0-0.8); Hematocrit 37.4 VOL% (35.7-47.0); Hemoglobin 12.1 GM/DL (12.0-16.0); Immature Granulocytes % 9.4 %; Immature Granulocytes Absolute 2.86 #; Lymphocytes # 3.3 10*3/uL (1.4-4.0); Lymphocytes % 10.8 % (21.3-54.2); Mean Corpuscular HGB Conc 32.4 GM/DL (32-36); Mean Corpuscular Volume 92.1 FL (87-102); Mean Platelet Volume 12.4 FL (9.6-12.0); Monocytes % 0.9 % (1.7-12.7); NRBC # 0.05 10*3/uL; Neutrophils % 78.8 % (38.7-73.9); Platelet Count 224 T/CUMM (130-400); Red Blood Count 4.06 MC/CUMM (3.8-5.5); Red Cell Distribution Width 14.4 % (9.3-17.3); White Blood Count 30.3 T/CUMM (4-12)
[2020-05-13 05:33] LABS: Osmolality,Calculated 311.7 MOS/KG (273-304)
[2020-05-13 05:42] LABS: Band Neutrophils 1 % (0-10); Lymphocytes 7 % (20-55); Platelet Estimate Adequate; Segmented Neutrophils 84 % (50-85); Total Cells Counted 100
[2020-05-13 05:43] LABS: Hypochromasia Slight; Ovalocytes Slight
[2020-05-13] MEDS ORDERED: SODIUM POLYSTYRENE SULFATE 15 GM/60 ML BOTTLE PO ONE (05:44)
[2020-05-13] MEDS: VANCOMYCIN 50 MG/ML 60 ML/BOTTLE PO SCH ×4 (06:06→18:00)
[2020-05-13] MEDS ORDERED: CALCIUM GLUCONATE 1,000 MG in SODIUM CHLORIDE 0.9% 100 ML IV ONE (07:38)
[2020-05-13] MEDS ORDERED: INSULIN REGULAR 100 UNIT/ML IV ONE (07:39)
[2020-05-13] MEDS ORDERED: DEXTROSE 50% 25 GM/50 ML VIAL IV ONE (07:41)
[2020-05-13] MEDS: ASCORBIC ACID 500 MG TABLET PO SCH (09:31)
[2020-05-13] MEDS: carvediloL 25 MG TABLET PO SCH ×2 (09:31→20:45)
[2020-05-13] MEDS: ZINC SULFATE 220 MG CAPSULE PO SCH (09:31)
[2020-05-13] MEDS: INSULIN REGULAR 100 UNIT/ML SUBCUT SCH ×4 (09:31→21:54)
[2020-05-13] MEDS: ROSUVASTATIN 20 MG TABLET PO SCH (09:32)
[2020-05-13] MEDS: DEXAMETHASONE 4 MG/1 ML VIAL IV SCH (09:32)
[2020-05-13] MEDS: ASPIRIN 325 MG TABLET PO SCH (09:32)
[2020-05-13] MEDS: HEPARIN 5,000 UNIT/1 ML VIAL SUBCUT SCH ×2 (09:35→20:44)
[2020-05-13] MEDS: predniSONE 5 MG TABLET PO SCH (11:50)
[2020-05-13] MEDS: TACROLIMUS 0.5 MG CAPSULE PO SCH ×2 (11:50→20:45)
[2020-05-13] MEDS: INSULIN GLARGINE 100 UNIT/ML SUBCUT SCH (20:45)
[2020-05-13] MEDS: cefTRIAXone 1,000 MG in SODIUM CHLORIDE 0.9% 100 ML IV SCH (20:47)
[2020-05-14] MEDS: VANCOMYCIN 50 MG/ML 60 ML/BOTTLE PO SCH ×4 (00:40→17:08)
[2020-05-14] MEDS: INSULIN REGULAR 100 UNIT/ML SUBCUT SCH ×3 (07:55→17:08)
[2020-05-14] MEDS: carvediloL 25 MG TABLET PO SCH ×2 (08:47→23:23)
[2020-05-14] MEDS: HEPARIN 5,000 UNIT/1 ML VIAL SUBCUT SCH (08:47)
[2020-05-14] MEDS: ROSUVASTATIN 20 MG TABLET PO SCH (08:47)
[2020-05-14] MEDS: ASPIRIN 325 MG TABLET PO SCH (08:47)
[2020-05-14] MEDS: TACROLIMUS 0.5 MG CAPSULE PO SCH (08:48)
[2020-05-14] MEDS: ZINC SULFATE 220 MG CAPSULE PO SCH (08:48)
[2020-05-14] MEDS: ASCORBIC ACID 500 MG TABLET PO SCH (08:48)
[2020-05-14] MEDS: predniSONE 5 MG TABLET PO SCH (08:48)
[2020-05-14] MEDS ORDERED: DEXAMETHASONE 4 MG/1 ML VIAL IV SCH (09:00)
[2020-05-14 13:08] LABS: Basophils % 0.1 % (0.0-0.8); Hematocrit 35.3 VOL% (35.7-47.0); Hemoglobin 11.4 GM/DL (12.0-16.0); Immature Granulocytes % 13.3 %; Lymphocytes # 1.8 10*3/uL (1.4-4.0); Lymphocytes % 4.7 % (21.3-54.2); Mean Corpuscular HGB Conc 32.3 GM/DL (32-36); Mean Corpuscular Volume 93.4 FL (87-102); Mean Platelet Volume 12.1 FL (9.6-12.0); Monocytes % 3.7 % (1.7-12.7); NRBC # 0.04 10*3/uL; Neutrophils % 78.2 % (38.7-73.9); Platelet Count 305 T/CUMM (130-400); Red Blood Count 3.78 MC/CUMM (3.8-5.5); Red Cell Distribution Width 14.6 % (9.3-17.3); White Blood Count 37.7 T/CUMM (4-12)
[2020-05-14 13:44] LABS: Calcium 9.1 MG/DL (8.5-10.1); Osmolality,Calculated 317.4 MOS/KG (273-304)
[2020-05-14 13:50] LABS: Band Neutrophils 2 % (0-10); Lymphocytes 6 % (20-55); Metamyelocytes 6 %; Platelet Estimate Normal; Segmented Neutrophils 84 % (50-85); Total Cells Counted 100
[2020-05-14] MEDS ORDERED: SODIUM BICARBONATE 50 MEQ/50 ML VIAL IV ONE ×2 (15:30→23:00)
[2020-05-14] MEDS ORDERED: SODIUM CHLORIDE 0.9% IV SCH (17:00)
[2020-05-14] MEDS ORDERED: SODIUM BICARB IV SCH (17:00)
[2020-05-14] MEDS ORDERED: EPINEPHrine 1 MG/ML VIAL ONE (23:00)
[2020-05-14] MEDS ORDERED: CALCIUM GLUCONATE 1,000 MG/10 ML VIAL IV ONE (23:00)
[2020-05-14] MEDS: INSULIN GLARGINE 100 UNIT/ML SUBCUT SCH (23:23)
[2020-05-15] MEDS: HEPARIN 5,000 UNIT/1 ML VIAL SUBCUT SCH (00:06)
[2020-05-15] MEDS: TACROLIMUS 0.5 MG CAPSULE PO SCH (00:06)
[2020-05-15] MEDS: VANCOMYCIN 50 MG/ML 60 ML/BOTTLE PO SCH ×2 (00:07→06:40)
[2020-05-15] MEDS ORDERED: NOREPINEPHRINE 4 MG/4 ML VIAL IV ONE (00:29)
[2020-05-15] MEDS ORDERED: PHENYLEPHRINE DRIP 40 MG/250 ML PREMIX IV ONE (01:04)
[2020-05-15] MEDS: PHENYLEPHRINE DRIP 40 MG/250 ML PREMIX IV PRN ×2 (01:07→03:18)
[2020-05-15] MEDS ORDERED: NOREPINEPHRINE 8 MG in SODIUM CHLORIDE 0.9% 242 ML IV PRN (01:12)
[2020-05-15] MEDS: INSULIN REGULAR 100 UNIT/ML SUBCUT SCH (01:17)
[2020-05-15 01:20] LABS: ABG Base Excess -11.4 MMOL/L (-2.5-2.5); ABG HCO3 15.4 MMOL/L (20-26); ABG Oxygen Saturation 97.2 % (95-100); ABG PCO2 32.9 MM HG (35-48); ABG PH 7.261 (7.35-7.45); ABG TCO2 13.6 MMOL/L (23-27)
[2020-05-15] MEDS ORDERED: SODIUM BICARBONATE 50 MEQ/50 ML VIAL IV ONE ×4 (01:29→23:00)
[2020-05-15] MEDS ORDERED: AMIODARONE INJ 150 MG in DEXTROSE 5% 100 ML IV ONE (02:48)
[2020-05-15] MEDS ORDERED: PHENYLEPHRINE INJ 160 MG in SODIUM CHLORIDE 0.9% 234 ML IV PRN (03:00)
[2020-05-15] MEDS ORDERED: NOREPINEPHRINE 16 MG in SODIUM CHLORIDE 0.9% 234 ML IV PRN (03:00)
[2020-05-15] MEDS ORDERED: AMIODARONE INJ 450 MG in DEXTROSE 5% 241 ML IV SCH ×2 (03:00→09:00)
[2020-05-15] MEDS ORDERED: DIGOXIN 0.5 MG/2 ML AMP ONE (03:28)
[2020-05-15] MEDS ORDERED: DIGOXIN 0.5 MG/2 ML AMP IV ONE (03:29)
[2020-05-15] MEDS ORDERED: EPINEPHrine 1 MG/ML VIAL ONE ×2 (03:42→04:12)
[2020-05-15] MEDS ORDERED: CALCIUM GLUCONATE 1,000 MG/10 ML VIAL IV ONE ×3 (03:42→23:00)
[2020-05-15] MEDS ORDERED: CALCIUM CHLORIDE 1,000 MG/10 ML VIAL IV ONE (04:12)
[2020-05-15 04:42] LABS: ABG Base Excess -6.8 MMOL/L (-2.5-2.5); ABG HCO3 17.8 MMOL/L (20-26); ABG Oxygen Saturation 98.7 % (95-100); ABG PCO2 32.4 MM HG (35-48); ABG PH 7.358 (7.35-7.45); ABG PO2 194.8 MM HG (80-95); ABG TCO2 18.8 MMOL/L (23-27)
[2020-05-15 04:51] LABS: Basophils # 0.1 10*3/uL (0.0-0.2); Basophils % 0.1 % (0.0-0.8); Hematocrit 33.5 VOL% (35.7-47.0); Hemoglobin 10.9 GM/DL (12.0-16.0); Immature Granulocytes % 12.4 %; Immature Granulocytes Absolute 12.61 #; Lymphocytes # 1.7 10*3/uL (1.4-4.0); Lymphocytes % 1.7 % (21.3-54.2); Mean Corpuscular HGB Conc 32.5 GM/DL (32-36); Mean Corpuscular Volume 94.1 FL (87-102); Mean Platelet Volume 11.5 FL (9.6-12.0); Monocytes % 4.7 % (1.7-12.7); NRBC # 0.58 10*3/uL; Neutrophils % 81.1 % (38.7-73.9); Platelet Count 233 T/CUMM (130-400); Red Blood Count 3.56 MC/CUMM (3.8-5.5); Red Cell Distribution Width 14.6 % (9.3-17.3)
[2020-05-15 04:57] LABS: White Blood Count 101.8 T/CUMM (4-12)
[2020-05-15 05:03] LABS: Calcium 10.2 MG/DL (8.5-10.1)
[2020-05-15 05:14] LABS: Band Neutrophils 2 % (0-10); Lymphocytes 5 % (20-55); Nucleated Red Blood Cells 1 (0-5); Platelet Estimate Adequate; Segmented Neutrophils 88 % (50-85); Total Cells Counted 100
[2020-05-15 05:15] LABS: Hypochromasia 1+; Microcytosis Slight
[2020-05-15 05:21] LABS: Basophils # 0.1 10*3/uL (0.0-0.2); Basophils % 0.1 % (0.0-0.8); Eosinophils # 0.3 10*3/uL (0.0-0.87); Eosinophils % 0.3 % (0.00-10.9); Hematocrit 33.6 VOL% (35.7-47.0); Immature Granulocytes Absolute 13.08 #; Lymphocytes # 5.2 10*3/uL (1.4-4.0); Lymphocytes % 5.2 % (21.3-54.2); Mean Corpuscular HGB Conc 32.7 GM/DL (32-36); Mean Corpuscular Volume 94.1 FL (87-102); Monocytes % 1.6 % (1.7-12.7); NRBC # 0.62 10*3/uL; Neutrophils % 79.8 % (38.7-73.9); Platelet Count 230 T/CUMM (130-400); Red Blood Count 3.57 MC/CUMM (3.8-5.5); Red Cell Distribution Width 14.6 % (9.3-17.3)
[2020-05-15 05:37] LABS: White Blood Count 100.6 T/CUMM (4-12)
[2020-05-15 05:54] LABS: Band Neutrophils 3 % (0-10); Eosinophils 2 % (0-10); Lymphocytes 4 % (20-55); Metamyelocytes 2 %; Myelocytes 2 %; Nucleated Red Blood Cells 2 (0-5); Segmented Neutrophils 84 % (50-85); Total Cells Counted 100
[2020-05-15 05:55] LABS: Hypochromasia Slight; Microcytosis Slight; Platelet Estimate Normal
[2020-05-15 11:09] VITALS: BP 67/23
[2020-05-15 16:31] LABS: Toxoplasma IgG Value 103 IU/mL
[2020-05-15] MEDS ORDERED: EPINEPHrine 1 MG/10 ML SYRINGE ONE (23:00)
[2020-05-15] MEDS ORDERED: DEXTROSE 50% 25 GM/50 ML SYRINGE IV ONE (23:00)
== END 2020-05-15 07:30 | disposition expired | DRG 208 ==
LOC: EDBD → EDUNIT# → N.EDINP 18:18 → N.ED 18:18 → N.2E 05-06 01:02 → SUATTDRO 05-06 09:21 → N.CC 05-09 12:23 → N.2E 05-10 14:09 → N.CC 05-14 23:07
PROVIDERS: ADMIT Internal Medicine Geriatric Medicine; ATTEND Internal Medicine